=== PATIENT | female | born 1990 | race Caucasian/White ===

== ENCOUNTER 2018-01-04 16:11 | Emergency (ER) | payer OTHER, SELFPAY ==
[2018-01-04 16:19] VITALS: BP 127/86; PULSE 86; RESP 20; TEMP 36.5; O2SAT 99
[2018-01-04 16:45] LABS: Bilirubin Negative (Negative); Blood Small (Negative); Clarity Clear; Glucose Negative (Negative); Ketones Negative (Negative); Leukocyte Esterase Negative (Negative); Nitrite Negative (Negative)
[2018-01-04 16:57] LABS: Bacteria Few HPF (Negative); C & S Indicated? No/Sq. Contamination; Casts Negative LPF (Negative); Crystals Negative HPF (Negative); Epithelial Cells Many HPF (Negative); Mucus Negative (Negative); RBC 0-2 (0-2)
[2018-01-04 17:25] LABS: HCT 40.2 % (36.0-46.0); HGB 13.6 g/dL (12.0-15.5); Mean Corp. HGB Concentration 33.8 g/dL (32.0-36.0); Mean Corpuscular Hemoglobin 31.3 pg (27.0-33.0); Mean Corpuscular Volume 92.4 fL (80-95); Mean Platelet Volume 9.7 fL (8.0-11.0); Platelet Count 289 x1000/uL (130-400); RBC 4.35 m/cumm (4.00-5.20); White Blood Cell Count 7.73 k/cumm (4.4-10.8)
[2018-01-04 17:39] LABS: Anion Gap 11.3 mmol/L (3-11); BUN 8 mg/dL (7-18); CO2 25.7 mmol/L (21.0-32.0); CREATININE 0.58 mg/dL (0.55-1.02); Calcium 8.4 mg/dL (8.5-10.1); Chloride 99 mmol/L (98-107); Glucose 90 mg/dL (70-100); Potassium 3.4 mmol/L (3.5-5.1); Sodium 136 mmol/L (136-145)
--- NOTE | 2018-01-04 18:29 | DI.RAD_ITS ---
SYMPTOM/DIAGNOSIS: LT SIDED RIB PAIN, RECENT COLD PA AND LATERAL CHEST: No priors. The heart is normal in size. The lungs are clear. The mediastinal structures and pleura appear intact. CONCLUSION: Normal chest.
--- NOTE | 2018-01-04 18:32 | ED.GENADUL_ITS ---
Discharge Plan Disposition Patient Disposition: HOME Condition: Improving Discharge Details Chief Complaint: FlankPain Clinical Impression: Rib pain on left side Primary Care Provider: RAÚL,LOCAL ED Provider: Bernadette Boyce Home Meds and New Rx's Prescriptions: Continue fluoxetine 10 mg Capsule 10 mg PO DAILY RF: 0 Discharge Instructions Instructions: Chest Wall Pain (ED) Additional Instructions: Drink plenty of fluids and get plenty of rest. Be sure to safely stop drinking alcohol as alcohol withdrawal can be deadly. Follow-up with your primary care doctor in [place] in 1 week for reevaluation. Return to the emergency department any worsening or new concerning symptoms. Discharge Data Discharge Date/Time-TO BE ENTERED AT DEPARTURE: 01/04/18 20:36 Discharge Physician: Bernadette Boyce Medical Decision Making 27-year-old female presents with left lateral rib and chest pain for the past 2 weeks, worse with deep breathing. Admits to recent cold which is what she admits. To drinking 5-12 beers daily, 12 beers yesterday. She denies nausea, vomiting, diarrhea, abdominal pain, chest pain or urinary symptoms. Vitals within normal limits. Abdomen soft and nontender. Left lateral chest minimally tender to palpation. No rash or trauma to chest. No calf tenderness. Differential diagnosis includes musculoskeletal chest wall pain, PE, pancreatitis, shingles, costochondritis. Labs drawn on arrival and notes a white blood cell count of 7.7, urinalysis notes 5-10 WBCs but this appears contaminated. test negative. Will add a d-dimer, chest x-ray, lipase and liver panel give a dose of Toradol. 2009 --labs and imaging reviewed and unremarkable. D dimer negative. Lipase was 423 and the setting of no abdominal pain, nonspecific. Chest x-ray negative. She does feel better after Toradol. Patient is requesting her IV taken out and to go home. She is instructed on the importance of safely stopping alcohol. She is returning to [place] in 2 days. She is instructed to follow-up with a primary care doctor in 1 week for reevaluation and return to the ER if worse. HPI General Mode of arrival: ambulatory . Date/Time Provider Initiated Documentation: 01/04/18 16:48 . Limitations to Documentation: no limitations . Information obtained by: patient . HPI Narrative: Patient is a 27-year-old female who presents with L lateral chest /rib pain for the past 2 weeks. States her pain is constant and worse with deep breathing. She denies any alleviating factors. She has not taken any medication for pain. She admits to a recent cold with sore throat cough but states this is improving. She denies chest pain, fever, rash, abdominal pain, urinary symptoms or known injury. She drinks 5 beers daily for the past 2 months and yesterday she drank 12 beers. She denies recent travel, recent surgery, leg pain or swelling. She denies suicidal ideation. Past medical history: Depression Surgical history: None Social history: Denies tobacco or drugs, daily alcohol use Medications: Oral contraceptive pill Allergies: None PCP: In [place] Related Data Home Medications Medication Instructions Recorded Confirmed fluoxetine 10 mg PO DAILY 01/04/18 01/04/18 Allergies Allergy/AdvReac Type Severity Reaction Status Date / Time No Known Allergies Allergy Unverified 01/04/18 16:20 General Stated Complaint: FlankPain WILLIAM: 3 Review of Systems Review of Systems All systems reviewed & are unremarkable except as noted in HPI and below PFSH Social History Smoking/Tobacco Use Status: Never Exam Const General: cooperative and healthy appearing Orientation: alert and awake HENMT Head: normal to inspection Ears: hearing grossly normal bilaterally and external ears normal General nose exam: external nose normal Face and sinus: normal facial exam Mouth: oral mucosae normal Eyes General: appearance normal, both eyes and all related structures Eyelids: eyelids normal EOM: EOM intact bilaterally Neck Neck: normal visual inspection Lymphatic: no lymphadenopathy noted Chest Chest: normal inspection of the chest and tenderness (minimal tenderness to palpation L lateral chest pain. No rash, ecchymosis, erythema) Breast inspection: normal inspection of the breasts Resp Effort & Inspection: normal respiratory effort and able to speak in complete sentences Auscultation: clear to auscultation bilaterally Cardio Rate: regular rate Rhythm: regular rhythm GI Inspection: normal to inspection Palpation: soft, not firm, no guarding, no hepatosplenomegaly, no masses and nontender Auscultation: normal bowel sounds Back/Spine/Pelvis Back: no CVA tenderness Skin General skin exam: no rashes or lesions noted Neuro General: alert and awake Cognition: normal cognition Speech: speech normal Gait: normal gait Motor: muscle tone normal throughout Sensory Exam: no sensory deficits noted Extrem General: normal to inspection, full ROM, normal capillary refill and no edema Psych Appearance: grossly normal Mental Status: mental status grossly normal Speech and Movement: speech and movement normal Affect: normal affect Thought Process: normal Course Vital Signs Temperature 97.7 F 01/04/18 16:19 Pulse 86 01/04/18 16:19 Respiratory Rate 20 01/04/18 16:19 Blood Pressure 127/86 01/04/18 16:19 Pulse Oximetry 99 01/04/18 16:19 Temperature 97.7 F 01/04/18 16:19 Temperature Source Temporal Artery Scan 01/04/18 16:19 Pulse 86 01/04/18 16:19 Respiratory Rate 20 01/04/18 16:19 Respiratory Effort Non-Labored 01/04/18 16:27 Blood Pressure 127/86 01/04/18 16:19 Pulse Oximetry 99 01/04/18 16:19 Oxygen Delivery Method Room Air 01/04/18 16:19 Oxygen Flow Rate 0 01/04/18 16:19 Pain Level 9 01/04/18 16:19 Lab/Test Results Lab/Test Results: Laboratory Tests Range/Units 01/04/18 01/04/18 01/04/18 16:31 17:04 17:04 WBC (4.4-10.8) k/cumm 7.73 RBC (4.00-5.20) m/cumm 4.35 Hgb (12.0-15.5) g/dL 13.6 Hct (36.0-46.0) % 40.2 MCV (80-95) fL 92.4 MCH (27.0-33.0) pg 31.3 MCHC (32.0-36.0) g/dL 33.8 RDW (11.7-14.6) % 14.0 Plt Count (130-400) x1000/uL 289 MPV (8.0-11.0) fL 9.7 Sodium (136-145) mmol/L 136 Potassium (3.5-5.1) mmol/L 3.4 L Chloride (98-107) mmol/L 99 Carbon Dioxide (21.0-32.0) mmol/L 25.7 Anion Gap (3-11) mmol/L 11.3 H BUN (7-18) mg/dL 8 Creatinine (0.55-1.02) mg/dL 0.58 Estimated GFR/1.73 m2 (mL/min/1.73m2) >= 60.00 Glucose (70-100) mg/dL 90 Calcium (8.5-10.1) mg/dL 8.4 L Urine Color (Yellow) Yellow Urine Clarity Clear Urine pH (5-8) 7.0 Ur Specific [place] (1.005-1.025) 1.020 Urine Protein (Negative) mg/dL Negative Urine Ketones (Negative) mg/dL Negative Urine Blood (Negative) Small H Urine Nitrite (Negative) Negative Urine Bilirubin (Negative) Negative Urine Urobilinogen (Up TO 0.2) EU/dL 1.0 H Ur Leukocyte Esterase (Negative) Negative Urine RBC (0-2) 0-2 Urine WBC (0-5) HPF 5-10 Ur Epithelial Cells (Negative) HPF Many Urine Crystals (Negative) HPF Negative Urine Bacteria (Negative) HPF Few Urine Casts (Negative) LPF Negative Urine Mucus (Negative) Negative Ur Culture Indicated? No/sq. contamination Urine Glucose (Negative) mg/dL Negative POC- Test(urine) Negative
[2018-01-04 18:36] LABS: ALT 36 U/L (12-78); AST 28 U/L (15-37); Albumin 3.5 g/dL (3.4-5.0); Alkaline Phosphatase 59 U/L (46-116); Bilirubin, Direct 0.08 mg/dL (0.00-0.20); Bilirubin, Total 0.2 mg/dL (0.2-1.0); Lipase 423 U/L (73-393); Total Protein 7.7 g/dL (6.4-8.2)
[2018-01-04] MEDS: Ketorolac 30 MG/ML VIAL IVP (18:41)
--- NOTE | 2018-01-04 19:44 | DI.VRAD_ITS ---
EXAM: XR Chest, 2 Views EXAM DATE/TIME: 01/04/2018 6:31 PM CLINICAL HISTORY: 27 years old, female; Cough; L sided rib pain, recent cold; R/O acute disease TECHNIQUE: XR of the chest, 2 views. COMPARISON: No relevant prior studies available. FINDINGS: Lungs: Unremarkable. No consolidation. Pleural space: Unremarkable. No pleural effusion. No pneumothorax. Heart/Mediastinum: Unremarkable. No cardiomegaly. Bones/joints: Unremarkable for patient's age. IMPRESSION: No active pulmonary disease. Dictated and Authenticated by: Jos Pittman MD. Ordering:WILEY JAIN MD
[2018-01-04 19:55] LABS: D-Dimer 323 ng/mlFEU (<500)
[2018-01-04 20:37] VITALS: BP 130/75; PULSE 79; RESP 20; O2SAT 98
== END 2018-01-04 20:36 | disposition home or self-care (01) ==
PROVIDERS: Emergency Provider Physician Assistant
DX: R07.81 Pleurodynia (principal)
CPT/HCPCS: 36415; 80048; 80076; 81025; 83690; 85027; 96374; 99284; 71046; 81003; 81015; 85379; 99285; J1885

== ENCOUNTER 2019-01-30 15:45 | Outpatient (REF) | payer OTHER, SELFPAY ==
--- NOTE | 2019-01-30 15:30 | PAPFT_PTH ---
PATIENT: Marie Varela LOC: [facility] U#:[id number] AGE/SX: 28/F ROOM: RE01/30/[address]: JESICA Cabrera : 1990 BED: DIS: 01/30/2019 SPEC #: [id number] RECD: 02/02/19 10:51 STATUS: DAVON REOscar #: [id number] SHALOM: 01/30/19 15:[address]: Frances Gallegos DEPT: [facility] Cytology RECD BY: Tracy Sandoval ENTERED: 02/02/19 10:51 SP TYPE: PAPFT SEAMUS DR: Carri Weems Tissues: 1 - CX/ENDOCX FOR PAP SMEARS Procedures: PAP THIN PREP/UVM Screening Comments: [id number]
== END 2019-01-30 16:05 ==
LOC: LBN 15:45
PROVIDERS: Visit Provider Nurse Practitioner Family
DX: Z12.4 Encounter for screening for malignant neoplasm of cervix (principal)
CPT/HCPCS: 88142

== ENCOUNTER 2019-12-14 19:45 | Emergency (ER) | payer OTHER, SELFPAY ==
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
[2019-12-14 19:48] VITALS: BP 137/85; PULSE 98; RESP 16; TEMP 37.2; O2SAT 98
[2019-12-14] MEDS: Acetaminophen 500 MG TAB 1000 MG PO (20:06)
[2019-12-14] MEDS: Ketorolac 30 MG/ML VIAL IM (20:06)
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
== END 2019-12-14 21:10 | disposition home or self-care (01) ==
PROVIDERS: Emergency Provider Physician Assistant
DX: S52.591A Other fractures of lower end of right radius, initial encounter for closed fracture (principal); V86.55XA Driver of 3- or 4- wheeled all-terrain vehicle (ATV) injured in nontraffic accident, initial encounter
CPT/HCPCS: 25600; 81025; 96372; 99282; 73110; 73130; 99281; J1885; L3650

== ENCOUNTER 2019-12-23 10:55 | Outpatient (CLI) | payer OTHER, SELFPAY ==
--- NOTE | 2019-12-23 10:45 | DI.RAD_ITS ---
EXAM: XR FOREARM RT CLINICAL HISTORY: follow up right distal radius. TECHNIQUE: 2D digital imaging was performed. COMPARISON: CR,XR XR WRIST RT COMPL NAVICULAR from 12/14/2019 FINDINGS: BONES: There is no change in alignment of the distal radial fracture. No bony destructive lesion is seen. Visualized portions of the elbow and wrist are otherwise unremarkable. SOFT TISSUE: Normal. IMPRESSION: Stable distal radial fracture. DATA REPOSITORY: RADIATION DOSE DELIVERED:
== END 2019-12-23 11:15 ==
PROVIDERS: Referring Provider Student in an Organized Health Care Education/Training Program; Visit Provider Physician Assistant Surgical
DX: S52.591A Other fractures of lower end of right radius, initial encounter for closed fracture (principal)
CPT/HCPCS: 73090

== ENCOUNTER 2019-12-30 10:34 | Outpatient (CLI) | payer OTHER, SELFPAY ==
--- NOTE | 2019-12-30 08:45 | DI.RAD_ITS ---
EXAM: XR FOREARM RT INDICATION: F/U FRACTURE. COMPARISON: CR,XR XR HAND RT COMPLETE from 12/14/2019 TECHNIQUE: 2D digital imaging was performed. FINDINGS: There has been no change in the alignment of the distal radial fracture. The elbow is unremarkable. DATA REPOSITORY: RADIATION DOSE DELIVERED:
== END 2019-12-30 10:54 ==
PROVIDERS: Referring Provider Orthopaedic Surgery; Visit Provider Orthopaedic Surgery
DX: S52.591A Other fractures of lower end of right radius, initial encounter for closed fracture (principal)
CPT/HCPCS: 73090

== ENCOUNTER 2020-01-27 10:56 | Outpatient (CLI) | payer OTHER, SELFPAY ==
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
== END 2020-01-27 11:16 ==
PROVIDERS: Referring Provider Physician Assistant; Visit Provider Orthopaedic Surgery
DX: S52.501A Unspecified fracture of the lower end of right radius, initial encounter for closed fracture (principal)
CPT/HCPCS: 73100

== ENCOUNTER 2020-06-10 02:18 | Outpatient (CLI) | payer MEDICAID, SELFPAY ==
[2020-06-10 14:39] LABS: Kit/Specimen SENT
[2020-06-10 15:20] LABS: *AMPHETAMINES SCREEN URINE Negative (Negative); *BARBITURATES SCREEN URINE Negative (Negative); *BENZODIAZEPINES SCREEN URINE Negative (Negative); Cannabinoids THC Negative (Negative); Cocaine Screen,Urine Negative (Negative); METHADONE URINE SCREEN Negative (Negative); OPIATES URINE SCREEN Negative (Negative)
[2020-06-10 15:22] LABS: Tricyclic Antidepressants Negative (Negative)
[2020-06-10 16:26] LABS: Abs Immature Grans 0.05 10^3/uL (0.0-0.06); Absolute Basophil Count 0.03 10^3/uL (0.0-0.2); Absolute Eosinophil Count 0.18 10^3/uL (0.0-0.7); Absolute Lymphocyte Count 2.07 10^3/uL (1.2-3.4); Absolute Monocyte Count 0.58 10^3/uL (0.1-0.8); Absolute Neutrophil Count 7.39 10^3/uL (1.2-6.7); Basophils % 0.3; Eosinophils % 1.7; HCT 34.6 % (36.0-46.0); HGB 11.8 g/dL (11.2-15.7); Immature Grans % 0.5; Lymphocytes % 20.1; MCH 29.8 pg (27.0-33.0); MCHC 34.1 % (32.0-36.0); MCV 87.4 fL (80-95); MPV 11.1 fL (8.0-11.0); Monocytes % 5.6; Neutrophils % 71.8; Nucleated RBC 0 %; Platelet Count 272 10^3/uL (130-400); RBC 3.96 10^6/uL (3.93-5.22); RDW 12.5 % (11.7-14.6); RDW-SD 40.6 fL
[2020-06-12 16:16] LABS: Syphilis Total Ab w/Reflex Nonreactive (Nonreactive)
[2020-06-13 10:04] LABS: Hepatitis B Surface Ag Negative (Negative)
[2020-06-13 10:50] LABS: Hepatitis C Ab w Rflx HCV PCR Negative (Negative)
[2020-06-13 11:27] LABS: Varicella IgG Antibody Positive (See Note)
[2020-06-13 11:32] LABS: Rubella IgG Ab (UVM) Positive (See Note)
[2020-06-13 11:59] LABS: HIV-1/2 Ag & Ab Screen Negative (Negative)
[2020-06-13 15:46] LABS: Chlamydia Result Negative (Negative); GC Result Negative (Negative)
[2020-06-16 10:54] LABS: Buprenorphine Negative ng/mL (Cutoff: 5.0); Norbuprenorphine Negative ng/mL (Cutoff: 2.5)
[2020-06-22 12:29] LABS: Result Summary NEGATIVE; Specimen WB Whole Blood
== END 2020-06-10 02:19 | disposition home or self-care (01) ==
LOC: LBO 02:18
PROVIDERS: Visit Provider Advanced Practice Midwife
DX: Z34.91 Encounter for supervision of normal pregnancy, unspecified, first trimester (principal); Z11.3 Encounter for screening for infections with a predominantly sexual mode of transmission; Z36.89 Encounter for other specified antenatal screening; Z11.59 Encounter for screening for other viral diseases; Z11.4 Encounter for screening for human immunodeficiency virus [HIV]; Z01.84 Encounter for antibody response examination
CPT/HCPCS: 80307; 86787; 86803; 86850; 86900; 86901; 87340; 87389; 87491; 87591; 81220; 85025; 86762; 86780; 87086

== ENCOUNTER 2020-08-01 01:10 | Outpatient (CLI) | payer MEDICAID, SELFPAY ==
--- NOTE | 2020-08-01 07:30 | DI.US_ITS ---
Exam(s) US OB 2-3 TRIMESTER EXAM: US OB 2-3 TRIMESTER CLINICAL HISTORY: 18 week anatomy survey,Z34.90. TECHNIQUE: Transabdominal obstetrical ultrasound performed. COMPARISON: No exams were available for comparison FINDINGS: Transabdominal obstetrical ultrasound performed. FINDINGS: Number of fetuses: One. position: Breech heart rate: 162 bpm. Placental location: Posterior. The placental tip is 0.7 cm from the internal os. Amniotic fluid index: Amount of fluid is within normal limits. ANATOMICAL SURVEY: Within normal limits. BIOMETRIC DATA: BPD: 4.2cm consistent with 18 weeks 5 days HC: 16.1cm consistent with 18 weeks 6 days AC: 13.8cm consistent with 19 weeks 1 day FL: 3cm consistent with 19 weeks 2 days Cisterna Magna: 3 mm Cerebellum: 2.1 cm Composite Age: 19 weeks EDC by US: 12/26/2020 Heart Rate: 162BPM IMPRESSION: 1. Single live intrauterine gestation as above. 2. There is a low-lying placenta. 3. Normal anatomic survey. DATA REPOSITORY:
== END 2020-08-01 01:30 ==
PROVIDERS: Visit Provider Advanced Practice Midwife
DX: Z34.92 Encounter for supervision of normal pregnancy, unspecified, second trimester (principal); Z3A.18 18 weeks gestation of pregnancy
CPT/HCPCS: 76805

== ENCOUNTER 2020-09-27 03:16 | Outpatient (CLI) | payer MEDICAID, SELFPAY ==
[2020-09-27 17:03] LABS: HGB 10.4 g/dL (11.2-15.7); MCH 29.5 pg (27.0-33.0); MCHC 33.5 % (32.0-36.0); MCV 87.8 fL (80-95); MPV 9.7 fL (8.0-11.0); Platelet Count 232 10^3/uL (130-400); RBC 3.53 10^6/uL (3.93-5.22); RDW 12.8 % (11.7-14.6); RDW-SD 41.1 fL; WBC 11.06 10^3/uL (4.4-10.8)
[2020-09-27 17:08] LABS: Glucose,1 Hr (Glucola) 129 mg/dL (80-140)
== END 2020-09-27 03:17 | disposition home or self-care (01) ==
LOC: LBO 03:17
PROVIDERS: Advanced Practice Midwife; Visit Provider Obstetrics & Gynecology Gynecology
DX: Z34.92 Encounter for supervision of normal pregnancy, unspecified, second trimester (principal); Z3A.27 27 weeks gestation of pregnancy
CPT/HCPCS: 36415; 82950; 85027

== ENCOUNTER 2020-09-30 02:28 | Outpatient (CLI) | payer MEDICAID, SELFPAY ==
--- NOTE | 2020-09-30 07:45 | DI.US_ITS ---
Exam(s) US OB F/U FACIAL/LVOT/RVOT EXAM: US OB F/U FACIAL/LVOT/RVOT CLINICAL HISTORY: follow up 19 week US low lying placenta, O44.42, Z34.90 TECHNIQUE: Ultrasound performed using standard protocol. COMPARISON: US US OB 2-3 TRIMESTER from 08/01/2020 FINDINGS: Limited ultrasound was performed to evaluate placental location. Predicted gestational age is approx imately 27 weeks by history.. Placenta is posterior. Placental tip now lies about 3.3 cm above the internal os. No evidence of previa or marginal previa. heart rate was 147 BPM. There is visually a normal quantity of amniotic fluid. IMPRESSION: DATA REPOSITORY:
== END 2020-09-30 02:48 ==
PROVIDERS: Visit Provider Advanced Practice Midwife
DX: O44.42 Low lying placenta NOS or without hemorrhage, second trimester (principal); Z3A.27 27 weeks gestation of pregnancy
CPT/HCPCS: 76815

== ENCOUNTER 2020-11-29 16:46 | Outpatient (REF) | payer MEDICAID, SELFPAY ==
[2020-11-29 18:06] LABS: PROTEIN 15.6 mg/dL
[2020-11-29 18:13] LABS: *AMPHETAMINES SCREEN URINE Negative (Negative); *BARBITURATES SCREEN URINE Negative (Negative); *BENZODIAZEPINES SCREEN URINE Negative (Negative); Cannabinoids THC Negative (Negative); Cocaine Screen,Urine Negative (Negative); METHADONE URINE SCREEN Negative (Negative); OPIATES URINE SCREEN Negative (Negative)
[2020-11-29 18:19] LABS: Tricyclic Antidepressants Negative (Negative)
[2020-11-29 19:25] LABS: Prot/Crea Ur Ratio 0.21
[2020-12-03 12:01] LABS: Buprenorphine Negative ng/mL (Cutoff: 5.0); Norbuprenorphine Negative ng/mL (Cutoff: 2.5)
== END 2020-11-29 16:47 | disposition home or self-care (01) ==
LOC: LBN 16:46
PROVIDERS: Advanced Practice Midwife; Visit Provider Obstetrics & Gynecology
DX: O12.03 Gestational edema, third trimester (principal); Z36.85 Encounter for antenatal screening for Streptococcus B; Z3A.36 36 weeks gestation of pregnancy
CPT/HCPCS: 80307; 82565; 84156; 87081

== ENCOUNTER 2020-12-02 10:59 | Outpatient (CLI) | payer MEDICAID, SELFPAY ==
[2020-12-02 11:39] VITALS: BP 130/77; PULSE 90; TEMP 36.9
--- NOTE | 2020-12-02 13:26 | W.OBNST ---
Date of service: 12/02/20 Time of Service: 13:26 NST Evaluation Reason for NST Reasons for Nonstress Test: OTHER, SEE COMMENT Reason for NST Other: Elevated BP in office, new onset pedal edema Gestational Age Gestational Age in Weeks and Days: 36 Weeks and 3Days Test and Monitor Explained Test/Monitor Explained: Test Explained, Monitor Explained and Patient Verbalized Understanding Vital Signs Blood Pressure: 130/77 Pulse: 90 Temperature: 98.4 F NST Information Date on Monitor: 12/02/20 Time on Monitor: 11:36 Date off Monitor: 12/02/20 Time off Monitor: 12:15 Total Time on Monitor: 39 NST Interventions: PO Hydration NST Evaluation Patient States Movement: Present FHR Baseline: 140 Variability: Moderate 6-25 bpm Accelerations: 15x15 Decelerations: None NST Results: Reactive Note NST Note Note: Marie presented for scheduled NST due to BP elevations, Today BP is stable, Denies signs or symptoms of pre-eclamspia. Reports active baby. Denies signs of labor. NST is reactive and reassuring. Will keep next office visit and further discuss NST needs then. Discussed mild lower leg/feet edema and self help measures. JESSICA NST Reviewed and Verified by: Amira De Luna
[2020-12-02 13:28] VITALS: BP 130/77; PULSE 90; TEMP 36.9
== END 2020-12-02 12:40 | disposition home or self-care (01) ==
LOC: BCD 11:01 → OBS 11:31
PROVIDERS: Visit Provider Advanced Practice Midwife
DX: O99.893 Other specified diseases and conditions complicating puerperium (principal); R03.0 Elevated blood-pressure reading, without diagnosis of hypertension; O12.02 Gestational edema, second trimester; Z3A.36 36 weeks gestation of pregnancy
CPT/HCPCS: 59025

== ENCOUNTER 2020-12-06 17:24 | Outpatient (REF) | payer MEDICAID, SELFPAY ==
[2020-12-06 22:06] LABS: PROTEIN 8.3 mg/dL
[2020-12-06 22:07] LABS: COMMENT (LAB VIEW ONLY) 55.07 mg/dL; Prot/Crea Ur Ratio 0.15
== END 2020-12-06 17:25 | disposition home or self-care (01) ==
LOC: LBN 17:24
PROVIDERS: Visit Provider Advanced Practice Midwife
DX: O12.03 Gestational edema, third trimester (principal); Z3A.37 37 weeks gestation of pregnancy
CPT/HCPCS: 82565; 84156

== ENCOUNTER 2020-12-12 14:50 | Outpatient (CLI) | payer MEDICAID, SELFPAY ==
[2020-12-12 14:58] VITALS: BP 136/82; PULSE 76; RESP 16; TEMP 37
[2020-12-12 15:24] VITALS: BP 134/74; PULSE 75
[2020-12-12 15:27] VITALS: BP 134/74
[2020-12-12 15:45] VITALS: BP 136/82; PULSE 76; TEMP 36.8
--- NOTE | 2020-12-12 15:56 | W.OBNST ---
Date of service: 12/12/20 Time of Service: 15:56 NST Evaluation Reason for NST Reasons for Nonstress Test: GESTATIONAL HYPERTENSION Gestational Age Gestational Age in Weeks and Days: 37 Weeks and 6Days Test and Monitor Explained Test/Monitor Explained: Test Explained, Monitor Explained and Patient Verbalized Understanding Vital Signs Blood Pressure: 136/82 Pulse: 76 Temperature: 98.2 F NST Information Date on Monitor: 12/12/20 Time on Monitor: 14:52 Date off Monitor: 12/12/20 NST Interventions: Reposition Patient NST Evaluation Patient States Movement: Present FHR Baseline: 135 Variability: Moderate 6-25 bpm Accelerations: 15x15 Decelerations: None NST Results: Reactive Note NST Note Note: B.P. elevated at the office today. Edema is trace and improved from the previous 2 weeks. Marie has had a mild headache for a few days. She has not taken tylenol at all. I encouraged her to take tylenol and rest and call if symptoms do not resolve. preeclampsia labs sent today. Await results. Marie was encoraged to continue modified bedrest at home. NST Reviewed and Verified by: Amira Del Cid
[2020-12-12 15:57] LABS: HCT 34.3 % (36.0-46.0); HGB 11.5 g/dL (11.2-15.7); MCH 28.4 pg (27.0-33.0); MCHC 33.5 % (32.0-36.0); MCV 84.7 fL (80-95); MPV 11.5 fL (8.0-11.0); Platelet Count 201 10^3/uL (130-400); RBC 4.05 10^6/uL (3.93-5.22); RDW 13.4 % (11.7-14.6); RDW-SD 41.6 fL; WBC 8.61 10^3/uL (4.4-10.8)
[2020-12-12 15:58] VITALS: BP 136/82; PULSE 76; TEMP 36.8
[2020-12-12 16:30] LABS: ALT 35 U/L (14-59); AST 27 U/L (15-37); Albumin 2.4 g/dL (3.4-5.0); Alkaline Phosphatase 151 U/L (46-116); Anion Gap 9.1 mmol/L (3-11); BUN 8 mg/dL (7-18); Bilirubin, Total 0.3 mg/dL (0.2-1.0); CO2 23.9 mmol/L (21.0-32.0); CREATININE 0.6 mg/dL (0.55-1.02); Calcium 8.2 mg/dL (8.5-10.1); Chloride 105 mmol/L (98-107); Glucose 76 mg/dL (74-106); Potassium 3.2 mmol/L (3.5-5.1); Sodium 138 mmol/L (136-145); Total Protein 6.3 g/dL (6.4-8.2); Uric Acid 4.6 mg/dL (2.6-6.0)
[2020-12-12 16:52] LABS: PROTEIN < 6.0 mg/dL
[2020-12-12 16:59] LABS: COMMENT (LAB VIEW ONLY) 38.18 mg/dL
== END 2020-12-12 16:25 | disposition home or self-care (01) ==
LOC: BCD 14:51 → OBS 14:53
PROVIDERS: Advanced Practice Midwife; Visit Provider Advanced Practice Midwife
DX: O13.3 Gestational [pregnancy-induced] hypertension without significant proteinuria, third trimester (principal); Z3A.37 37 weeks gestation of pregnancy
CPT/HCPCS: 36415; 80053; 85027; 59025; 82565; 84156; 84550

== ENCOUNTER 2020-12-16 09:46 | Outpatient (CLI) | payer MEDICAID, SELFPAY ==
[2020-12-16 13:10] VITALS: BP 140/81; PULSE 77; TEMP 37
[2020-12-16 13:30] VITALS: BP 140/81; PULSE 77
[2020-12-16 14:15] VITALS: BP 139/85; PULSE 69
[2020-12-16 14:21] LABS: HGB 11.9 g/dL (11.2-15.7); MCH 28.6 pg (27.0-33.0); MCHC 33.1 % (32.0-36.0); MCV 86.5 fL (80-95); MPV 11.6 fL (8.0-11.0); Platelet Count 215 10^3/uL (130-400); RBC 4.16 10^6/uL (3.93-5.22); RDW 13.5 % (11.7-14.6); RDW-SD 42.1 fL; WBC 9.46 10^3/uL (4.4-10.8)
[2020-12-16 14:38] LABS: ALT 25 U/L (14-59); AST 22 U/L (15-37); Albumin 2.6 g/dL (3.4-5.0); Alkaline Phosphatase 168 U/L (46-116); Anion Gap 8.3 mmol/L (3-11); BUN 7 mg/dL (7-18); Bilirubin, Total 0.3 mg/dL (0.2-1.0); CO2 24.7 mmol/L (21.0-32.0); CREATININE 0.6 mg/dL (0.55-1.02); Chloride 103 mmol/L (98-107); Glucose 72 mg/dL (74-106); Potassium 3.6 mmol/L (3.5-5.1); Sodium 136 mmol/L (136-145); Total Protein 6.6 g/dL (6.4-8.2); Uric Acid 4.4 mg/dL (2.6-6.0)
[2020-12-16 14:54] VITALS: BP 133/84; PULSE 76
[2020-12-16 15:12] LABS: PROTEIN < 6.0 mg/dL
[2020-12-16 15:15] LABS: COMMENT (LAB VIEW ONLY) 25.63 mg/dL
--- NOTE | 2020-12-16 15:46 | W.OBNST ---
Date of service: 12/16/20 Time of Service: 15:46 NST Evaluation Reason for NST Reasons for Nonstress Test: GESTATIONAL HYPERTENSION Gestational Age Gestational Age in Weeks and Days: 38 Weeks and 3Days Test and Monitor Explained Test/Monitor Explained: Test Explained, Monitor Explained and Patient Verbalized Understanding Vital Signs Blood Pressure: 140/81 Pulse: 77 Temperature: 98.6 F NST Information Date on Monitor: 12/16/20 Time on Monitor: 13:15 Date off Monitor: 12/16/20 NST Interventions: PO Hydration NST Evaluation Patient States Movement: Present FHR Baseline: 135 Variability: Moderate 6-25 bpm Accelerations: 15x15 Decelerations: None NST Results: Reactive Note NST Note Note: Serial BP q 40 minutes: 140/81, 139/85, 133/84 Cvx closed/50% posterior, firm, vtx -3, intact membranes Labs drawn (3rd set in 2 wks). All results remain WNL Reviewed pt status iw Dr. Joseph, recommend IOL at 39 wks for Gest HTN Pt booked for 12/20, report to [facility] at noon. NST Reviewed and Verified by: Ольга Elizalde
[2020-12-16 15:51] VITALS: BP 140/81; PULSE 77; TEMP 37
== END 2020-12-16 15:30 | disposition home or self-care (01) ==
LOC: BCD 09:47 → OBS 13:09
PROVIDERS: Visit Provider Advanced Practice Midwife
DX: O13.3 Gestational [pregnancy-induced] hypertension without significant proteinuria, third trimester (principal); Z3A.38 38 weeks gestation of pregnancy
CPT/HCPCS: 80053; 85027; 59025; 82565; 84156; 84550

== ENCOUNTER 2020-12-20 16:09 | Outpatient (CLI) | payer MEDICAID, SELFPAY ==
[2020-12-20 16:26] VITALS: BP 136/83; PULSE 80; RESP 16; TEMP 36.8
[2020-12-20 16:54] LABS: HCT 34.1 % (36.0-46.0); HGB 11.4 g/dL (11.2-15.7); MCH 28.6 pg (27.0-33.0); MCHC 33.4 % (32.0-36.0); MCV 85.7 fL (80-95); Platelet Count 196 10^3/uL (130-400); RBC 3.98 10^6/uL (3.93-5.22); RDW 13.6 % (11.7-14.6); RDW-SD 42.2 fL; WBC 7.48 10^3/uL (4.4-10.8)
[2020-12-20 17:04] LABS: ALT 19 U/L (14-59); AST 18 U/L (15-37); Albumin 2.4 g/dL (3.4-5.0); Alkaline Phosphatase 160 U/L (46-116); Anion Gap 11.1 mmol/L (3-11); BUN 7 mg/dL (7-18); Bilirubin, Total 0.2 mg/dL (0.2-1.0); CO2 22.9 mmol/L (21.0-32.0); CREATININE 0.6 mg/dL (0.55-1.02); Calcium 8.5 mg/dL (8.5-10.1); Chloride 105 mmol/L (98-107); Glucose 112 mg/dL (74-106); Potassium 3.2 mmol/L (3.5-5.1); Sodium 139 mmol/L (136-145); Total Protein 6.2 g/dL (6.4-8.2); Uric Acid 4.4 mg/dL (2.6-6.0)
[2020-12-20 18:03] LABS: PROTEIN 10.9 mg/dL
[2020-12-20 18:11] LABS: COMMENT (LAB VIEW ONLY) 41.13 mg/dL; Prot/Crea Ur Ratio 0.26
--- NOTE | 2020-12-20 20:02 | W.OBNST ---
Date of service: 12/20/20 Time of Service: 20:02 NST Evaluation Reason for NST Reasons for Nonstress Test: GESTATIONAL HYPERTENSION Gestational Age Gestational Age in Weeks and Days: 39 Weeks and 0Days Test and Monitor Explained Test/Monitor Explained: Test Explained, Monitor Explained and Patient Verbalized Understanding NST Information Date on Monitor: 12/20/20 Time on Monitor: 16:20 Date off Monitor: 12/20/20 Time off Monitor: 16:43 Total Time on Monitor: 23 NST Interventions: PO Hydration Contraction Frequency: 6-7 NST Evaluation Patient States Movement: Present FHR Baseline: 140 Variability: Moderate 6-25 bpm Accelerations: 15x15 Decelerations: None NST Results: Reactive Note NST Note Note: BP 136/83 Labs done and all are WNL Discharged to home to await being called in for IOL as soon as unit volume and acuity allow NST Reviewed and Verified by: Ольга Elizalde
== END 2020-12-20 20:03 | disposition home or self-care (01) ==
LOC: BCD 16:12 → OBS 16:15
PROVIDERS: Visit Provider Advanced Practice Midwife
DX: O13.3 Gestational [pregnancy-induced] hypertension without significant proteinuria, third trimester (principal); Z3A.39 39 weeks gestation of pregnancy
CPT/HCPCS: 80053; 85027; 99211; 59025; 82565; 84156; 84550

== ENCOUNTER 2020-12-22 15:17 | Inpatient (IN) | payer MEDICAID, SELFPAY ==
[2020-12-22 15:39] VITALS: BP 164/98; PULSE 71
[2020-12-22 15:40] VITALS: BP 157/84; PULSE 71
[2020-12-22 15:55] VITALS: BP 157/84; PULSE 71; RESP 16; TEMP 36.7
[2020-12-22 16:29] LABS: HCT 36.4 % (36.0-46.0); HGB 11.9 g/dL (11.2-15.7); MCH 28.1 pg (27.0-33.0); MCHC 32.7 % (32.0-36.0); MCV 86.1 fL (80-95); MPV 12.1 fL (8.0-11.0); Platelet Count 197 10^3/uL (130-400); RBC 4.23 10^6/uL (3.93-5.22); RDW 13.5 % (11.7-14.6); RDW-SD 41.6 fL; WBC 9.34 10^3/uL (4.4-10.8)
[2020-12-22 17:03] LABS: ALT 19 U/L (14-59); AST 21 U/L (15-37); Albumin 2.6 g/dL (3.4-5.0); Alkaline Phosphatase 172 U/L (46-116); Anion Gap 10.3 mmol/L (3-11); BUN 6 mg/dL (7-18); Bilirubin, Total 0.2 mg/dL (0.2-1.0); CO2 23.7 mmol/L (21.0-32.0); CREATININE 0.6 mg/dL (0.55-1.02); Calcium 8.7 mg/dL (8.5-10.1); Chloride 105 mmol/L (98-107); Glucose 72 mg/dL (74-106); Potassium 3.3 mmol/L (3.5-5.1); Sodium 139 mmol/L (136-145); Total Protein 6.6 g/dL (6.4-8.2); Uric Acid 4.7 mg/dL (2.6-6.0)
[2020-12-22 17:28] VITALS: BP 190/82; PULSE 71
[2020-12-22 17:29] VITALS: BP 161/77; PULSE 69
--- NOTE | 2020-12-22 18:40 | HPE_ITS ---
Date of service: 12/22/20 Time of Service: 18:40 Assessment and Plan Assessment and plan (1) Hypertension affecting in third trimester: Status: Acute Assessment and plan: preeclampsia panel completed and WNL. Induction of labor planned for tomorrow morning after patient rests. (2) Edema during : Status: Acute (3) Prolonged latent phase of labor: Status: Acute Assessment and plan: Admit to the Center. Medication with Morphine and vistaril for therapeutic rest. Sleep encouraged. Will consider induction of labor in the morning when staffing allows. OB-HPI Labor/Delivery History of Present Illness Reason for Visit: Term Rule Out Labor Chief Complaint: Uterine Contractions; Maternal Discomfort (prodromal labor) , Associated Signs and Symptoms of Maternal Discomfort: none. EDUARDO Calculator Estimated Delivery Date Method Current WG Current Estimate 12/27/20 LMP (Certain) 39w 2d Other Estimates 12/30/20 Ultrasound #1 38w 6d Comments: Marie has been observed for gestational hypertension with pedal edema and B.P.s ranging from 130-140/80-90. She reports Contractions which began in the contact center team lead hours and have worsened this afternoon. Her cervix was found to be closed by the RN caring for her with no cervical change in 2 hours. Her cervix is now 1 cm/80% by my exam. Marie is complaining of fatigue and we reviewed options. History of Present Expected Delivery Route/Plan - LUIGIM FOB/yaquelin - Rex Chaitanya Duff (his first child) BG Angelica Rao GBS negative Specific Issues/Plan 1. [place] LP X 3, female, (patient picked up copy to read gender, only informed of LPX3) 2. CF carrier screen negative. Declines AFP single marker test 3. low lying placenta at 19 weeks 0.7cm from os, repeat 28 weeks ordered 3a. Sono September 30 shows placenta tip 3.3 cm from os, low lie is resolved 4. Marie does not plan to receive covid vaccine, Chaitanya has received it. 5. On 11/08, pt had severe lower left rib cage pain, possibly costochondritis from , discuss @ next appt 6. Edema - neg protein/creatinine ratio x 2. 7. Gestational Hypertension- twice weekly testing , labs WNL [facility] Medical History (Updated 12/22/20 @ 18:46 by Amira Del Cid CNM) Former tobacco use History of ectopic treated with medication Low-lying placenta in second trimester resolved headache in second trimester Family History (Updated 06/10/20 @ 13:07 by Amira Del Cid CNM) Father Well adult Mother Well adult Paternal Grandmother Breast cancer Maternal Grandfather Diabetes Social History Smoking/Tobacco Use Status: Current-Occasional Smoking risk assessment performed?: Yes Alcohol Intake: current Alcohol Intake frequency: a few times a week Drug use: Never Current gender identity: female Do you feel safe at home: Yes Do you feel safe in your relationship?: Yes History History 2 Para 0 Hx # Term Pregnancies 0 Multiple births 0 Hx # Pregnancies 0 Ectopic pregnancies 1 AB induced 0 Hx Number of Living Children 0 AB spontaneous 0 Meds Allergies and Home Medications Allergies Allergy/AdvReac Type Severity Reaction Status Date / Time nickel AdvReac Mild Skin Rash Verified 12/12/20 14:08 dust AdvReac Mild runny nose Uncoded 12/12/20 14:08 Home Medications Medication Instructions Recorded Confirmed Type fluticasone propionate 2 spray INTRANASAL BID 12/14/19 11/29/20 History prenat.vits,lea,jbs-hlcb-aedzs 1 tab PO DAILY 04/28/20 11/29/20 History fluoxetine 10 mg capsule 20 mg PO DAILY cap 05/19/20 11/29/20 History twvdjztufv-ssrednxfxnjkq-efrrkkqi 1 cap PO Q6H PRN #10 cap 12/20/20 Rx 50 mg-300 mg-40 mg capsule Exam Physical Exam Vital signs: Temp Pulse Resp BP 98.0 F 69 16 161/77 H 12/22/20 15:55 12/22/20 17:29 12/22/20 15:55 12/22/20 17:29 Vital Signs Reviewed: Yes Constitutional Constitutional: mild distress Detailed Labor and Delivery Exam Dilation: 1 Effacement (%): 80 station: -1 Cervix position: mid Consistency: soft Boss Score: Cervical Points Exam 0 1 2 3 Dilation Closed 1-2cm 3-4 cm 5-6cm Effacement 0-30% 40-50% 60-70% 80% Consistency Firm Medium Soft Station -3 -2 -1,0 +1,+2 Position Posterior Mid Anterior Amniotic Membrane Status: Intact Contraction Frequency(min): every 4 minutes Contraction Duration(sec): 60 Contraction Intensity: Mild/Moderate Comments: Admit to Center. Covid- 19 test. Anticipate . Fetus A Heart Rate Baseline: 140 Monitor Accelerations: 15 X 15 Monitor Decelerations: None Variability: Moderate (6-25 BPM) Presentation: Vertex Categories: Category I Est. Weight: 7 Respiratory Exam Respiratory Exam: Normal Cardiovascular Exam Cardiovascular Exam: Normal Abdominal Exam Abdominal Exam: Normal Rectal Exam Rectal Exam: Normal Exam Exam: Normal Extremities Exam Extremities Exam: Normal (trace edema) Back/Spine/Pelvis Exam Pelvis Adequate: Yes Skin Exam Skin Exam: Normal Psychiatric Exam Psychiatric Exam: Normal Results Results Group Beta Strep: Negative Abnormal Lab Findings: Abnormal Labs 12/22/20 12/22/20 16:17 16:17 MPV 12.1 H Potassium 3.3 L BUN 6 L Glucose 72 L Alkaline Phosphatase 172 H Albumin 2.6 L Risk Assessment Risk for Shoulder Dystocia Historical/Initial OB: NEGATIVE FOR: Pelvic Abnormality, Pre- BMI>30, Previous Shoulder Dystocia or Previous Macrosomia 40 Weeks: NEGATIVE FOR: EFW> 4500 gms, Maternal Weight Gain >40lb or Post Dates Delivery Plan @ 36wks: Risk for Pre-Eclampsia Date Initiated/Initials: not indicated. JK Yes, if one or more: NEGATIVE FOR: Hx Pre-E/Gest HTN, Chronic HTN, Multiple Gestation, Pre-gestational DM, Renal Disease, Systemic Lupus or APA Syndrome Yes, if 2 or more: POSITIVE FOR: Nulliparity; NEGATIVE FOR: Age>= 35 yrs, >10yr btwn pregnancies, BMI>30, ethinicty, Mother/Sister w/ Pre-E or Previous IUGR Risk for Post- Hemorrhage Initial: NEGATIVE FOR: Multiple Gestation, Previous PPH, Known Clotting Deficiency, Grand Multiparity or Anticoagulation At Risk?: No Risks Reviewed Risks Reviewed Upon Admission: Yes
[2020-12-22] MEDS: hydrOXYzine PAMOATE 25 MG CAP 50 MG PO (19:14)
[2020-12-22] MEDS: MORPHine 10 MG/ML VIAL IM (19:15)
[2020-12-22 19:18] VITALS: BP 150/88; PULSE 66
--- NOTE | 2020-12-22 19:42 | NUR.NOTE ---
pt called RN to bedside. Said she felt a pop followed by a few gushed of fluid. Nursing Note:
--- NOTE | 2020-12-22 22:34 | W.PM.OBNL1 ---
Date of service: 12/22/20 Time of Service: 22:34 Pelvic Exam Dilation: 3 Effacement (%): 90 station: -1 Cervix Position: mid Consistency: soft Vaginal Exam Presentation: Cephalic Pooling: Positive Contractions Monitor Mode: External Contraction Frequency(min): every 2-3 minutes Contraction Duration(sec): 60 Intensity: Moderate/Strong Fetus A Monitor: External (US) Heart Rate Baseline: 120 Presentation: Vertex Variability: Minimal (1-5 BPM) Categories: Category II Accelerations: 15 X 15 Decelerations: Variable Recurrence: Intermittent Amniotic Membrane Status: Ruptured Assessment Note: variable decellerations noted down to 90-100 from a baseline of 120 associated with contractions. 100 cc bolus was given by RN prior to my arrival. Malarie was moved to hands and knees position and decellerations improved. 500 cc bolus was ordered Assessment and Plan Assessment and plan (1) Hypertension affecting in third trimester: Status: Acute Assessment and plan: B.P. 150/77 and 160/88. Will continue to assess. Dr Joseph was notified of patient's status upon admission. The plan for admission and augmentation if necessary was reviewed. (2) Edema during : Status: Acute (3) Spontaneous onset of labor: Status: Acute Assessment and plan: continue to assess FHR pattern. Anticipate . Comfort measures. Objective Abnormal lab results 12/22/20 12/22/20 Range/Units 16:17 16:17 MPV 12.1 H (8.0-11.0) fL Potassium 3.3 L (3.5-5.1) mmol/L BUN 6 L (7-18) mg/dL Glucose 72 L (74-106) mg/dL Alkaline Phosphatase 172 H (46-116) U/L Albumin 2.6 L (3.4-5.0) g/dL Temp Pulse Resp BP 98.0 F 66 16 150/88 H 12/22/20 15:55 12/22/20 19:18 12/22/20 15:55 12/22/20 19:18 Laboratory Results WBC 9.34 10^3/uL (4.4-10.8) 12/22/20 16:17 RBC 4.23 10^6/uL (3.93-5.22) 12/22/20 16:17 Hgb 11.9 g/dL (11.2-15.7) 12/22/20 16:17 Hct 36.4 % (36.0-46.0) 12/22/20 16:17 MCV 86.1 fL (80-95) 12/22/20 16:17 MCH 28.1 pg (27.0-33.0) 12/22/20 16:17 MCHC 32.7 % (32.0-36.0) 12/22/20 16:17 RDW 13.5 % (11.7-14.6) 12/22/20 16:17 Plt Count 197 10^3/uL (130-400) 12/22/20 16:17 MPV 12.1 fL (8.0-11.0) H 12/22/20 16:17 Sodium 139 mmol/L (136-145) 12/22/20 16:17 Potassium 3.3 mmol/L (3.5-5.1) L 12/22/20 16:17 Chloride 105 mmol/L (98-107) 12/22/20 16:17 Carbon Dioxide 23.7 mmol/L (21.0-32.0) 12/22/20 16:17 Anion Gap 10.3 mmol/L (3-11) 12/22/20 16:17 BUN 6 mg/dL (7-18) L 12/22/20 16:17 Creatinine 0.6 mg/dL (0.55-1.02) 12/22/20 16:17 Estimated GFR/1.73 m2 >= 60.00 (mL/min/1.73m2) 12/22/20 16:17 Glucose 72 mg/dL (74-106) L 12/22/20 16:17 Uric Acid 4.7 mg/dL (2.6-6.0) 12/22/20 16:17 Calcium 8.7 mg/dL (8.5-10.1) 12/22/20 16:17 Total Bilirubin 0.2 mg/dL (0.2-1.0) 12/22/20 16:17 AST 21 U/L (15-37) 12/22/20 16:17 ALT 19 U/L (14-59) 12/22/20 16:17 Alkaline Phosphatase 172 U/L (46-116) H 12/22/20 16:17 Total Protein 6.6 g/dL (6.4-8.2) 12/22/20 16:17 Albumin 2.6 g/dL (3.4-5.0) L 12/22/20 16:17 Patient ABO/Rh B Positive 12/22/20 16:17 Antibody Screen NEGATIVE 12/22/20 16:17 Subjective Patient Reports: New Complaints Interval history since last seen: Marie received medication for sleep. Shortly after receiving the medication, SROM occurred for small amount of clear fluid. She began experiencing stronger contractions and requested to use nitrous oxide. Results Hemoglobin/Hematocrit: Hgb 11.9 g/dL (11.2-15.7) 12/22/20 16:17 Hct 36.4 % (36.0-46.0) 12/22/20 16:17 Abnormal Lab Findings: Abnormal Labs 12/22/20 12/22/20 16:17 16:17 MPV 12.1 H Potassium 3.3 L BUN 6 L Glucose 72 L Alkaline Phosphatase 172 H Albumin 2.6 L
[2020-12-23] VITALS (16 sets, daily range): BP systolic 128–142; BP diastolic 66–87; PULSE 84–117; RESP 18–20; TEMP 36.6–37; O2SAT 95–99
--- NOTE | 2020-12-23 02:14 | OBVDS_ITS ---
Date of service: 12/23/20 Time of Service: 02:14 OB Labor/ Delivery Information Baby A Delivery Delivery Method: Spontaneaous Presentation: Cephalic Cephalic Position: Vertex Vertex Position: Left Occipital Anterior (transverse shoulders) Cord Description-Baby A: 3 Vessels Amniotic Fluid: Clear Estimated Blood Loss: 300 Delivery Outcome: Liveborn Infant Transferred: Remains with Mother Note: FHTs 120s during first stage of labor. Marie was examined by RN after SROM and was 3 cms dilated. She progressed rapidly to full dilation and began bearing down with contractions. B.P. in the second stage 135/82. Straight catheterized during second stage as she was unable to void when she got up to the bathroom for 300 cc clear urine protein creatinene ratio sent. FHTs 120 in second stage. There were variable decellerations with pushing down to 90-100. Dr. Joseph was notified of variables and she came to the hospital to be available. Second stage huddle was done. Oxygen was administered via mask between pushes. Dr. Joseph was present for delivery. Spontaneous delivery of female delivered in AARON position with transverse shoulders. Baby was placed on mother's abdomen and dried and stimulated. Spontaneous cry. Cord was clamped and cut by the baby's father. The second I.V. dislodged and pitocin 10 units was given IM prior to the placenta delivery. With gentle cord traction, the cord broke at the placenta. The placenta was removed manually under nitrous oxide analgesia. The placenta and appears to by intact with a three vessel cord. The perineum was inspected and there was a small 2nd degree laceration which extended into the right sulcus. It was repaired under local anesthetic. The baby did breastfeed. After delivery, Mother and baby and father of the baby were stable and bonding well in the delivery room and there were no complications. Providers Doctor: Yumiko Joseph Nurse Wool Fleece Sorter: Amira Del Cid Nurse: Aleyda Galeas Nurse: Stephanie Lewis Other: Vivian Renee Labor/Delivery Information Number of Babies in Womb: 1 Steroids Given: None Reason Steroids Not Administered: N/A Group Beta Strep: Negative Antibiotics Administered: No Rubella Status: Immune Blood Type: B+ Varicella Immunity: Immune Born En Route: No Shoulder Dystocia: No Stages of Labor Onset of Labor Date: 12/22/20 Complete Dilatation Date: 12/22/20 Complete Dilatation Time: 23:15 ROM Baby A: 12/22/20 ROM Baby A: 19:38 ROM Total Time- Baby A: [id number] Infant Delivery Date-Baby A: 12/23/20 Delivery Time-Baby A: 01:20 Labor Stage 2 Duration: 2 hours and 5 minutes Placenta Delivery Date-Baby A: 12/23/20 Placenta Delivery Time-Baby A: 01:31 Labor-Stage 3 Duration: 11 minutes Placenta Status: Retained Baby A Gender: Female Gestational Status: Term (39-41.6 wks) Gestational Age in Weeks/Days: 39 Weeks and 3 Days Score-1 Minute Interval(Baby A) Heart Rate-1 minute: 100 BPM or Greater Respiratory Effort- 1 minute: Slow Respiration/Weak Cry Muscle Tone-1 minute: Active Movement Reflex Response-1 minute: Prompt Response Color-1 minute: Bluish Hands or Feet Total Score-1 minute: 8 Score-5 Minute Interval(Baby A) Heart Rate- 5 minute: 100 BPM or Greater Respiratory Effort-5 minute: Spontaneous/Strong Cry Muscle Tone-5 minute: Active Movement Reflex Response-5 minute: Prompt Response Color-5 minute: Bluish Hands or Feet Total Score- 5 minute: 9 Procedure Procedures: Retained Placenta Extraction (placenta manually removed due to broken cord. ) , none. EBL 300 cc Interventions Repair of Laceration Type: Perineal , Laceration Extension: Second Degree . Sponge Count Correct: No Sponges Placed in Vagina , Sharp Count Correct: Yes .
[2020-12-23 02:44] LABS: PROTEIN 31.3 mg/dL
[2020-12-23 02:45] LABS: COMMENT (LAB VIEW ONLY) 100.94 mg/dL; Prot/Crea Ur Ratio 0.31
[2020-12-23] MEDS: Acetaminophen 325 MG TAB 650 MG PO ×4 (02:49→19:15)
[2020-12-23] MEDS: Oxytocin 10 UNITS/ML VIAL IM (05:14)
[2020-12-23] MEDS: Ibuprofen 600 MG TAB PO ×3 (10:42→22:22)
[2020-12-23] MEDS: Hamamelis Leaf/Glycerin 100 EACH BOX PR (10:44)
[2020-12-23] MEDS: Dibucaine 1% 28 GM TUBE TP (10:45)
[2020-12-23] MEDS: Docusate Sodium 100 MG CAP PO (10:49)
[2020-12-23 11:49] LABS: Source Nasal/Nares
[2020-12-23 12:43] LABS: COVID-19 PCR Negative (Negative)
[2020-12-24] MEDS: Cyclobenzaprine 10 MG TAB PO (00:02)
[2020-12-24] MEDS: Ibuprofen 600 MG TAB PO ×2 (06:01→11:51)
[2020-12-24] MEDS: Acetaminophen 325 MG TAB 650 MG PO ×2 (06:01→11:51)
[2020-12-24 08:05] LABS: HCT 32.5 % (36.0-46.0); HGB 10.8 g/dL (11.2-15.7); MCH 28.8 pg (27.0-33.0); MCHC 33.2 % (32.0-36.0); MCV 86.7 fL (80-95); MPV 11.5 fL (8.0-11.0); Platelet Count 194 10^3/uL (130-400); RBC 3.75 10^6/uL (3.93-5.22); RDW 13.9 % (11.7-14.6); RDW-SD 43.1 fL; WBC 12.89 10^3/uL (4.4-10.8)
[2020-12-24] MEDS: oxyCODONE 5 mg/Acetaminophen 325 mg TAB 1 TAB PO ×3 (08:23→16:35)
[2020-12-24 09:20] VITALS: BP 120/78; PULSE 84; RESP 16; TEMP 36.8
--- NOTE | 2020-12-24 15:13 | W.PM.OBDISCH ---
Date of service: 12/24/20 Time of Service: 15:20 DS: Diagnosis Discharge Diagnosis (1) Hypertension affecting in third trimester: Status: Acute (2) Term of female : Status: Acute Asessment and Plan: Caring for baby independently. Pain due to low back discomfort. Marie has a history of low back pain. Her pain is managed well with oral analgesics, including flexeril and percocet x 1 dose. Voiding without difficulty. well. She has been using a sitz bath for perineal pain. A - stable mother and baby , second degree perineal laceration. Post day 2, low back pain P - Discharge to home. Routine post instructions. [facility] (3) Back pain: Status: Acute Asessment and Plan: percocet x 6 tablets escribed and flexeril 5 mg PO at HS PRN back pain. Hot packs or ice an baths PRN. Discussed following up with PT if pain persists Discharge Plan Discharge Details Reason For Visit: Term Rule Out Labor Admit Date/Time: 12/22/20 18:37 Admit Provider: Amira Del Cid Attending Provider: Amira Del Cid Primary Care Provider: ,Local Home Meds and New Rx's Prescriptions: New cyclobenzaprine 5 mg tablet 5 mg PO QHS Qty: 14 RF: 1 oxycodone-acetaminophen [Percocet] 5-325 mg tablet 1 tab PO Q8H PRNQty: 6 RF: 0 Continued prenat.vits,lea,fvs-qfol-pgwux Tablet 1 tab PO DAILY RF: 0 fluoxetine 10 mg capsule 20 mg PO DAILY RF: 0 No Action qbipxqpheq-nmlvjjswxmnzi-yrsv [Fioricet] 50-300-40 mg capsule 1 cap PO Q6H PRN (Reason: pain) Qty: 10 RF: 0 fluticasone propionate 50 mcg/actuation spray,suspension 2 spray INTRANASAL BID RF: 0 Discharge Instructions Activity:: Activity as Tolerated Activity:: Activity as Tolerated Equipment/Supplies:: No Equipment Needed OB:DS Summary Summary Vaginal Delivery Method: Spontaneaous Episiotomy Description: None Laceration Description: Perineal Laceration Extension: Second Degree Contraception Discussed Contraception Discussed: Yes Contraceptive Plan: Control Pill/Patch (POP), Gender-Baby A: Female weight: 7 lb 12.517 oz Status at Discharge Functional status at discharge: independent ambulation Overall status at discharge: patient is back to baseline Mental Status: mental status grossly normal Speech and Movement: speech and movement normal Mood: congruent mood Affect: normal affect Exam Physical Exam Vital signs: Temp Pulse Resp BP Pulse Ox 98.2 F 84 16 120/78 99 12/24/20 09:20 12/24/20 09:20 12/24/20 09:20 12/24/20 09:20 12/23/20 23:44 Vital Signs Reviewed: Yes Constitutional Constitutional: no acute distress Respiratory Exam Respiratory Exam: Normal Cardiovascular Exam Cardiovascular Exam: Normal Fundal Exam Fundus: Below Umbilicus and Firm Rectal Exam Rectal Exam: Normal Exam Perineum: Bruising and Repair Intact Extremities Exam Extremity Exam: Normal Back/Spine/Pelvis Exam Back Exam: Normal Skin Exam Skin Exam: Normal Psychiatric Exam Psychiatric Exam: Normal [facility] Medical History (Updated 12/24/20 @ 15:29 by Amira Del Cid CNM) Back pain Former tobacco use History of ectopic treated with medication Low-lying placenta in second trimester resolved headache in second trimester Family History (Updated 06/10/20 @ 13:07 by Amira Del Cid CNM) Father Well adult Mother Well adult Paternal Grandmother Breast cancer Maternal Grandfather Diabetes Social History Smoking/Tobacco Use Status: Current-Occasional Smoking risk assessment performed?: Yes Alcohol Intake: current Alcohol Intake frequency: a few times a week Drug use: Never Current gender identity: female Do you feel safe at home: Yes Do you feel safe in your relationship?: Yes History History 2 Para 0 Hx # Term Pregnancies 0 Multiple births 0 Hx # Pregnancies 0 Ectopic pregnancies 1 AB induced 0 Hx Number of Living Children 0 AB spontaneous 0 DS: Data Vitals/I&O Vitals and I&O: Vital Signs Temperature 98.2 F 12/24/20 09:20 Pulse 84 12/24/20 09:20 Pulse Rhythm Regular 12/24/20 08:13 Respiratory Rate 16 12/24/20 09:20 Respiratory Depth Normal 12/23/20 15:20 Blood Pressure 120/78 12/24/20 09:20 Blood Pressure Mean 92 12/24/20 09:20 Pulse Oximetry 99 12/23/20 23:44 Oxygen Delivery Method Room Air 12/22/20 15:55 Oxygen Flow Rate 0 12/22/20 15:55 Pain Level 2 12/24/20 09:20 Comment 12/22/20 17:28 Intake & Output 12/23/20 12/24/20 12/24/20 23:59 11:59 23:59 Output Total 300 / 1000 Balance -300 / -1000 Output: Urine 300 / 1000 Other: Urine Color Straw Data Completed and Pending Labs on day of discharge: Labs from last 24 hours 12/24/20 07:45 WBC 12.89 H RBC 3.75 L Hgb 10.8 L Hct 32.5 L MCV 86.7 MCH 28.8 MCHC 33.2 RDW 13.9 Plt Count 194 MPV 11.5 H
== END 2020-12-24 17:46 | disposition home or self-care (01) | DRG 807 ==
PROVIDERS: Admitting Provider Advanced Practice Midwife; Visit Provider Advanced Practice Midwife
DX: O13.4 Gestational [pregnancy-induced] hypertension without significant proteinuria, complicating childbirth (principal); Z37.0 Single live birth; O14.04 Mild to moderate pre-eclampsia, complicating childbirth; O63.0 Prolonged first stage (of labor); Z3A.39 39 weeks gestation of pregnancy; O70.1 Second degree perineal laceration during delivery; M54.9 Dorsalgia, unspecified
CPT/HCPCS: 36415; 80053; 85027; 86850; 86900; 86901; 87635; 82565; 84156; 84550; J2270; J2590

== ENCOUNTER 2022-04-12 04:07 | Outpatient (CLI) | payer MEDICAID, SELFPAY ==
[2022-04-12 11:41] LABS: Abs Immature Grans 0.04 10^3/uL (0.0-0.06); Absolute Basophil Count 0.03 10^3/uL (0.0-0.2); Absolute Eosinophil Count 0.12 10^3/uL (0.0-0.7); Absolute Lymphocyte Count 2.12 10^3/uL (1.2-3.4); Absolute Monocyte Count 0.48 10^3/uL (0.1-0.8); Absolute Neutrophil Count 6.85 10^3/uL (1.2-6.7); Basophils % 0.3; Eosinophils % 1.2; HCT 35.3 % (36.0-46.0); HGB 12.1 g/dL (11.2-15.7); Immature Grans % 0.4; MCH 29.4 pg (27.0-33.0); MCHC 34.3 % (32.0-36.0); MCV 86 fL (80-95); MPV 10.4 fL (8.0-11.0); Neutrophils % 71.1; Platelet Count 227 10^3/uL (130-400); RBC 4.11 10^6/uL (3.93-5.22); RDW 12.9 % (11.7-14.6); RDW-SD 40.4 fL; WBC 9.64 10^3/uL (4.4-10.8)
[2022-04-12 13:30] LABS: Panorama Kit Sent via Fed Ex
[2022-04-13 09:28] LABS: Hepatitis B Surface Ag Negative (Negative)
[2022-04-13 10:01] LABS: Hepatitis C Ab w Rflx HCV PCR Negative (Negative)
[2022-04-13 10:31] LABS: HIV-1/2 Ag & Ab Screen Negative (Negative)
[2022-04-13 11:35] LABS: Varicella IgG Antibody Positive (See Note)
[2022-04-13 11:47] LABS: Rubella IgG Ab (UVM) Positive (See Note)
[2022-04-14 14:38] LABS: Syphilis IgG w/Reflex Nonreactive (Nonreactive)
== END 2022-04-12 04:08 | disposition home or self-care (01) ==
LOC: LBO 04:07
PROVIDERS: Visit Provider Advanced Practice Midwife
DX: Z34.91 Encounter for supervision of normal pregnancy, unspecified, first trimester (principal); Z3A.11 11 weeks gestation of pregnancy
CPT/HCPCS: 36415; 86787; 86803; 86850; 86900; 86901; 87340; 87389; 85025; 86762; 86780

== ENCOUNTER 2022-04-12 11:25 | Outpatient (REF) | payer MEDICAID, SELFPAY ==
--- NOTE | 2022-04-12 10:30 | PAPFT_PTH ---
PATIENT: Marie Varela LOC: [facility] U#:[id number] AGE/SX: 31/F ROOM: RE04/12/[address]: Amira Del Cid : 1990 BED: DIS: 04/12/2022 SPEC #: [id number] RECD: 04/12/22 12:42 STATUS: DAVON REQ #: [id number] SHALOM: 04/12/22 10:[address]: Amira Del Cid DEPT: [facility] Cytology RECD BY: Kristina Whitehead Tissues: 1 - CX/ENDOCX FOR PAP SMEARS Procedures: PAP THIN PREP/UVM Screening HPV DNA PROBE Comments: [id number]
[2022-04-12 13:50] LABS: *AMPHETAMINES SCREEN URINE Negative (Negative); *BARBITURATES SCREEN URINE Negative (Negative); *BENZODIAZEPINES SCREEN URINE Negative (Negative); Cannabinoids THC Negative (Negative); Cocaine Screen,Urine Negative (Negative); METHADONE URINE SCREEN Negative (Negative); OPIATES URINE SCREEN Negative (Negative)
[2022-04-12 13:52] LABS: Tricyclic Antidepressants Negative (Negative)
[2022-04-13 13:23] LABS: Chlamydia Result Negative (Negative); GC Result Negative (Negative)
[2022-04-18 14:11] LABS: Buprenorphine Negative ng/mL (Cutoff: 5.0); Norbuprenorphine Negative ng/mL (Cutoff: 2.5)
== END 2022-04-12 11:26 | disposition home or self-care (01) ==
LOC: LBN 11:25
PROVIDERS: Visit Provider Advanced Practice Midwife
DX: Z34.91 Encounter for supervision of normal pregnancy, unspecified, first trimester (principal); Z11.3 Encounter for screening for infections with a predominantly sexual mode of transmission; Z12.4 Encounter for screening for malignant neoplasm of cervix; Z3A.11 11 weeks gestation of pregnancy; Z11.51 Encounter for screening for human papillomavirus (HPV)
CPT/HCPCS: 80307; 80348; 87491; 87591; 88142; 87086; 87624

== ENCOUNTER 2022-06-15 00:38 | Outpatient (CLI) | payer MEDICAID, SELFPAY ==
--- NOTE | 2022-06-15 06:45 | DI.US_ITS ---
Exam(s) US OB 2-3 TRIMESTER EXAM: US OB 2-3 TRIMESTER CLINICAL HISTORY: ,Z34.90. TECHNIQUE: Transabdominal obstetrical ultrasound performed. COMPARISON: US US OB F/U FACIAL/LVOT/RVOT from 09/30/2020 FINDINGS: Number of fetuses: 1 position: CEPHALIC heart rate: 147bpm Placental location: There is a grade 1 anterior placenta. The placental tip is 4.4 cm from the inter nal os. No evidence of previa. Amniotic fluid index: Amount of fluid is within normal limits. ANATOMICAL SURVEY: Within normal limits. The cord insertion site is 4.5 cm from the placental m argin. BIOMETRIC DATA: BPD: 4.76cm, 20weeks 3days HC: 17.93cm, 20weeks 3days AC: 14.88cm, 20weeks 1day FL: 3.44cm, 20weeks 6days Cisterna magna: 4.3mm Cerebellum: 2.23cm EFW: 354.36g, 0.77lb, 19% Composite Age: 20weeks 3days EDUARDO: 10/30/2022 Heart Rate: 147bpm IMPRESSION: 1. Single live intrauterine gestation as above. 2. Normal anatomic survey. DATA REPOSITORY:
== END 2022-06-15 00:58 ==
PROVIDERS: Visit Provider Advanced Practice Midwife
DX: Z34.92 Encounter for supervision of normal pregnancy, unspecified, second trimester (principal); Z3A.20 20 weeks gestation of pregnancy
CPT/HCPCS: 76805

== ENCOUNTER 2022-08-10 01:22 | Outpatient (CLI) | payer MEDICAID, SELFPAY ==
[2022-08-10 09:32] LABS: HCT 36.5 % (36.0-46.0); HGB 12.1 g/dL (11.2-15.7); MCH 29.8 pg (27.0-33.0); MCHC 33.2 % (32.0-36.0); MCV 90 fL (80-95); Platelet Count 228 10^3/uL (130-400); RBC 4.06 10^6/uL (3.93-5.22); RDW 13.5 % (11.7-14.6); RDW-SD 44.6 fL; WBC 9.31 10^3/uL (4.4-10.8)
[2022-08-10 09:58] LABS: Glucose,1 Hr (Glucola) 104 mg/dL (80-140)
== END 2022-08-10 01:23 | disposition home or self-care (01) ==
LOC: LBO 01:23
PROVIDERS: Visit Provider Advanced Practice Midwife
DX: Z34.93 Encounter for supervision of normal pregnancy, unspecified, third trimester (principal); Z3A.28 28 weeks gestation of pregnancy
CPT/HCPCS: 36415; 82950; 85027

== ENCOUNTER 2022-09-04 01:43 | Outpatient (CLI) | payer MEDICAID, SELFPAY ==
--- NOTE | 2022-09-04 12:30 | DI.US_ITS ---
Exam(s) US OB LIANNA WEIGHT EXAM: US OB LIANNA WEIGHT CLINICAL HISTORY: covid infection in Z34.90 SUPERVISION IN . TECHNIQUE: Transabdominal obstetrical ultrasound performed. COMPARISON: US US OB 2-3 TRIMESTER from 06/15/2022 FINDINGS: Number of fetuses: 1 position: CEPHALIC Placental location: There is a grade 1 anterior placenta. No evidence of previa. BIOMETRIC DATA: BPD: 8.08cm, 32weeks 3days HC: 29.64cm, 32weeks 5days AC: 30.86cm, 34weeks 6days FL: 5.86cm, 30weeks 4days EFW: 2,145.17g, 4lb 13.97oz, 74.1% Composite Age: 32weeks 5days EDUARDO: 10/25/2022 Heart Rate: 134bpm Amniotic fluid index: 14.58cm. Visually, amount of fluid is within normal limits. IMPRESSION: 1. Single live intrauterine gestation as above. 2. Estimated weight is 2145gms. This is the 74th percentile. 3. Amniotic fluid index is 14.6 cm. Visually within normal limits. DATA REPOSITORY:
== END 2022-09-04 02:03 ==
PROVIDERS: Visit Provider Advanced Practice Midwife
DX: Z34.93 Encounter for supervision of normal pregnancy, unspecified, third trimester (principal)
CPT/HCPCS: 76816

== ENCOUNTER 2022-10-08 11:59 | Outpatient (REF) | payer MEDICAID, SELFPAY ==
[2022-10-08 13:51] LABS: *AMPHETAMINES SCREEN URINE Negative (Negative); *BARBITURATES SCREEN URINE Negative (Negative); *BENZODIAZEPINES SCREEN URINE Negative (Negative); Cannabinoids THC Negative (Negative); Cocaine Screen,Urine Negative (Negative); METHADONE URINE SCREEN Negative (Negative); OPIATES URINE SCREEN Negative (Negative)
[2022-10-08 13:53] LABS: Tricyclic Antidepressants Negative (Negative)
== END 2022-10-08 12:00 | disposition home or self-care (01) ==
LOC: LBN 11:59
PROVIDERS: Visit Provider Advanced Practice Midwife
DX: Z34.93 Encounter for supervision of normal pregnancy, unspecified, third trimester (principal); Z36.85 Encounter for antenatal screening for Streptococcus B
CPT/HCPCS: 80307; 87081

== ENCOUNTER 2022-10-26 00:30 | Inpatient (IN) | payer MEDICAID, SELFPAY ==
[2022-10-26] VITALS (37 sets, daily range): BP systolic 55–144; BP diastolic 18–83; PULSE 73–148; RESP 12–18; TEMP 36.7–37.2; O2SAT 80–99; BMI 31.1
--- NOTE | 2022-10-26 01:09 | HPE_ITS ---
Date of service: 10/26/22 Time of Service: 01:10 Assessment and Plan Assessment and plan (1) Spontaneous onset of labor: Status: Acute Assessment and plan: Admit to Center. Comfort measures. Anticipate . OB-HPI Labor/Delivery History of Present Illness Reason for Visit: Rule out labor Chief Complaint: Uterine Contractions. EDUARDO Calculator Estimated Delivery Date Method Current WG Current Estimate 10/29/22 Ultrasound #1 39w 4d Other Estimates 10/21/22 LMP (Uncertain) 40w 5d Comments: Marie has been experiencing contractions for 11 hours which have been irregular and have increased in frequency. History of Present Expected Delivery Route/Plan - CNM FOB/yaquelin - Chaitanya Sherin- (second child together) BG- Mickie Sanz Likely unmedicated but OK with epidural if things go long GBS negative Specific Issues/Plan 1. CF carrier screen negative. Panorama LR female, declines AFP 2. Covid infection 02/20, unvaccinated - 32 week growth US 09/04 74% VTX nl LIANNA 3. anxiety - fluoxetine in the past. No meds currently 4. Tdap given PFSH All Active Problems (Updated 10/26/22 @ 01:20 by Amira Del Cid CNM) Spontaneous onset of labor (Acute) Right hip pain (Acute) COVID-19 affecting in first trimester (Acute) (Acute) Anxiety (Chronic) Positive test (Acute) Medical History (Updated 10/26/22 @ 01:20 by Amira Del Cid CNM) Back pain Former tobacco use History of ectopic treated with medication Mild anemia Family History (Updated 06/10/20 @ 13:07 by Amira Del Cid CNM) Father Well adult Mother Well adult Paternal Grandmother Breast cancer Maternal Grandfather Diabetes Social History (Updated 04/12/22 @ 10:29 by Amira Del Cid CNM) Smoking/Tobacco Use Status: Former Tobacco Use Smoking risk assessment performed?: Yes Alcohol Intake: former Drug use: Never Current gender identity: female Do you feel safe at home: Yes Do you feel safe in your relationship?: Yes History History 3 Para 1 Hx # Term Pregnancies 1 Multiple births 0 Hx # Pregnancies 0 Ectopic pregnancies 1 AB induced 0 Hx Number of Living Children 1 AB spontaneous 0 Past Pregnancies Del. Date GA/Weeks # Preg Succ Route Wgt Sex Labor Lgth Anesth esia Location Prov Complic 07/30/16 No In [place] 12/23/20 39 No vaginal 7 lb 12.51 oz Female local [facility] Delivery Date: 07/30/16 Last Updated by: Laney Elizalde ectopic preg, Rx'ed methyltrexate Delivery Date: 12/23/20 Last Updated by: Amira Del Cid CNM Long prodromal phase. Received therapeutic rest. Retained placenta, manually removed due broken cord Angelica Rao. Used nitrous oxide. Meds Allergies and Home Medications Allergies Allergy/AdvReac Type Severity Reaction Status Date / Time nickel AdvReac Mild Skin Rash Verified 10/23/22 11:06 dust AdvReac Mild runny nose Uncoded 10/23/22 11:06 Home Medications Medication Instructions Recorded Confirmed Type prenat.vits,lea,bxr-oodh-pzmjz 1 tab PO DAILY 04/28/20 10/23/22 History omeprazole magnesium 20 mg 20 mg PO DAILY #90 tabs 07/23/22 10/23/22 Rx tablet,delayed release Exam Physical Exam Vital signs: Temp Pulse Resp BP 98.2 F 73 18 132/78 10/26/22 00:51 10/26/22 00:51 10/26/22 00:51 10/26/22 00:51 Detailed Labor and Delivery Exam Dilation: 2 Effacement (%): 50 station: -2 Cervix position: mid Consistency: medium Boss Score: Cervical Points Exam 0 1 2 3 Dilation Closed 1-2cm 3-4 cm 5-6cm Effacement 0-30% 40-50% 60-70% 80% Consistency Firm Medium Soft Station -3 -2 -1,0 +1,+2 Position Posterior Mid Anterior Amniotic Membrane Status: Intact Monitor Mode: External Contraction Frequency(min): every 2-3 Contraction Duration(sec): 60 Contraction Intensity: Moderate/Strong Fetus A Heart Rate Baseline: 130 Monitor Accelerations: 15 X 15 Monitor Decelerations: None Variability: Moderate (6-25 BPM) Presentation: Vertex Categories: Category I Respiratory Exam Respiratory Exam: Normal Cardiovascular Exam Cardiovascular Exam: Normal Abdominal Exam Abdominal Exam: Normal Exam Exam: Normal Extremities Exam Extremities Exam: Normal Skin Exam Skin Exam: Normal Psychiatric Exam Psychiatric Exam: Normal Risk Assessment Risk for Shoulder Dystocia Historical/Initial OB: NEGATIVE FOR: Pelvic Abnormality, Pre- BMI>30, Previous Shoulder Dystocia or Previous Macrosomia 40 Weeks: NEGATIVE FOR: EFW> 4500 gms, Maternal Weight Gain >40lb or Post Dates Increased Risk?: No Risk for Pre-Eclampsia Date Initiated/Initials: not indicated. Yes, if one or more: NEGATIVE FOR: Hx Pre-E/Gest HTN, Chronic HTN, Multiple Gestation, Pre-gestational DM, Renal Disease, Systemic Lupus or APA Syndrome Yes, if 2 or more: NEGATIVE FOR: Nulliparity, Age>= 35 yrs, >10yr btwn pregnancies, BMI>30, ethinicty, Mother/Sister w/ Pre-E or Previous IUGR Risk for Post- Hemorrhage Initial: NEGATIVE FOR: Multiple Gestation, Previous PPH, Known Clotting Deficiency, Grand Multiparity or Anticoagulation 40 Weeks: NEGATIVE FOR: Anemia, hgb<10, Low platelets (thrombocytopenia), G estation HTN or Pre-E, Polyhydraminios or EFW>4500gms At Risk?: No Risks Reviewed Risks Reviewed Upon Admission: Yes
[2022-10-26 01:34] LABS: HGB 12.9 g/dL (11.2-15.7); MCH 29.5 pg (27.0-33.0); MCHC 33.1 % (32.0-36.0); MCV 89 fL (80-95); MPV 10.9 fL (8.0-11.0); Platelet Count 203 10^3/uL (130-400); RBC 4.37 10^6/uL (3.93-5.22); RDW 13.5 % (11.7-14.6); WBC 10.15 10^3/uL (4.4-10.8)
--- NOTE | 2022-10-26 03:00 | W.PM.OBNL1 ---
Date of service: 10/26/22 Time of Service: 03:00 Pelvic Exam Comments: pelvic exam deferred. Membranes intact Contractions Monitor Mode: Palpation Contraction Frequency(min): every 3-4 Contraction Duration(sec): 60 Intensity: Moderate/Strong Fetus A Monitor: Doppler Heart Rate Baseline: 140 Decelerations: None Assessment and Plan Assessment and plan (1) Spontaneous onset of labor: Status: Acute Assessment and plan: prepared for epidural. Anticipate . Objective Temp Pulse Resp BP 98.2 F 73 18 132/78 10/26/22 00:51 10/26/22 00:51 10/26/22 00:51 10/26/22 00:51 Laboratory Results WBC 10.15 10^3/uL (4.4-10.8) 10/26/22 01:20 RBC 4.37 10^6/uL (3.93-5.22) 10/26/22 01:20 Hgb 12.9 g/dL (11.2-15.7) 10/26/22 01:20 Hct 39.0 % (36.0-46.0) 10/26/22 01:20 MCV 89 fL (80-95) 10/26/22 01:20 MCH 29.5 pg (27.0-33.0) 10/26/22 01:20 MCHC 33.1 % (32.0-36.0) 10/26/22 01:20 RDW 13.5 % (11.7-14.6) 10/26/22 01:20 Plt Count 203 10^3/uL (130-400) 10/26/22 01:20 MPV 10.9 fL (8.0-11.0) 10/26/22 01:20 Patient ABO/Rh B Positive 10/26/22 01:20 Antibody Screen NEGATIVE 10/26/22 01:20 Subjective Interval history since last seen: Marie is using nitrous oxide for pain relief with good effect. She requests an epidural for pain relief and Gianluca VELIZ was paged and is enroute Results Hemoglobin/Hematocrit: Hgb 12.9 g/dL (11.2-15.7) 10/26/22 01:20 Hct 39.0 % (36.0-46.0) 10/26/22 01:20
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
--- NOTE | 2022-10-26 03:58 | W.ANESNEU ---
Epidural/Spinal Catheter Date Performed: 10/26/22 Procedure Start: 03:29 Procedure Stop: 03:48 Requesting Provider: Amira Del Cid Procedure Location: Obstetrics Reason Performed: Labor Epidural Standard Monitors Applied: Blood Pressure and SpO2 Patient Position: Sitting Sedation Given (Indicate Dose Given): No Sedation given Patient Mental Status: Awake Sterility: Hand Hygiene, Surgical Cap, Surgical Mask, Sterile Drape/Sheet and Chlorhexidine Procedure Location: L3-L4 Interspace Epidural Needle: Tuohy 17 Guage Needle Length: 3.5 Inch Needle Approach: Midline Epidural Procedure: 1% Lidocaine to skin and subcutaneous tissue with 25G needle and ASHLEY to Saline Used Catheter Placed?: Catheter Placed (wire reinforced) Test Dose (Indicate Dose Given): 3ml 1.5% Lidocaine with 1:200K Epinephrine Given and Negative Test Dose Loss of Resistance Depth (cm): 5 Catheter depth at skin (cm): 10 Dressing: Sorbaview Dressing Placed and Mastisol Used Epidural Provider Bolus (Indicate Dose Given): Total Ropivacaine 0.1% with Fentanyl 2mcg/ml Given from pump. (ml) (7 mL + 3 mL) Dose:: 10 mL Additives (Indicate Dose Given ): None Infusion Medication: Medication Infusion Began Medication Infusion: Ropivacaine 0.1% with Fentanyl 2mcg/ml Maintenance Infusion Rate (ml/hour): 10 PCEA Bolus Dose (ml): 5 Block Level: N/A Paresthesia: None Ultrasound: Used to iman site Number of Attempts (See previous attempts in note section): 1 Procedure Tolerated: No Complications Procedure Outcome: Successful Procedure Comment:: negative test dose, 10 mL load total, appears and stated to be more comfortable with mostly equal distribution. Educated on PCEA function. Performed By: Gianluca Platt
--- NOTE | 2022-10-26 04:06 | W.PM.OBNL1 ---
Date of service: 10/26/22 Time of Service: 04:07 Pelvic Exam Dilation: 4 Effacement (%): 80 station: -1 Cervix Position: mid Consistency: soft Contractions Monitor Mode: External Contraction Frequency(min): every 3 minutes Contraction Duration(sec): 60 Intensity: Moderate/Strong Fetus A Monitor: External (US) Heart Rate Baseline: 140 Presentation: Vertex Variability: Moderate (6-25 BPM) Categories: Category I Accelerations: 15 X 15 Decelerations: None Amniotic Membrane Status: Intact Assessment and Plan Assessment and plan (1) Spontaneous onset of labor: Status: Acute Assessment and plan: rest encouraged. Anticipate Objective Temp Pulse Resp BP Pulse Ox 98.2 F 90 18 122/65 98 10/26/22 00:51 10/26/22 04:03 10/26/22 00:51 10/26/22 04:03 10/26/22 04:03 Laboratory Results WBC 10.15 10^3/uL (4.4-10.8) 10/26/22 01:20 RBC 4.37 10^6/uL (3.93-5.22) 10/26/22 01:20 Hgb 12.9 g/dL (11.2-15.7) 10/26/22 01:20 Hct 39.0 % (36.0-46.0) 10/26/22 01:20 MCV 89 fL (80-95) 10/26/22 01:20 MCH 29.5 pg (27.0-33.0) 10/26/22 01:20 MCHC 33.1 % (32.0-36.0) 10/26/22 01:20 RDW 13.5 % (11.7-14.6) 10/26/22 01:20 Plt Count 203 10^3/uL (130-400) 10/26/22 01:20 MPV 10.9 fL (8.0-11.0) 10/26/22 01:20 Patient ABO/Rh B Positive 10/26/22 01:20 Antibody Screen NEGATIVE 10/26/22 01:20 Results Hemoglobin/Hematocrit: Hgb 12.9 g/dL (11.2-15.7) 10/26/22 01:20 Hct 39.0 % (36.0-46.0) 10/26/22 01:20
[2022-10-26] MEDS: Oxytocin/Normal Saline 30 UNIT/500 ML BAG 95 UNITS IV (07:45)
[2022-10-26] MEDS: Normal Saline Flush 10 ML SYR IVP (07:49)
--- NOTE | 2022-10-26 08:23 | OBVDS_ITS ---
Date of service: 10/26/22 Time of Service: 08:25 OB Labor/ Delivery Information Baby A Delivery Delivery Method: Spontaneaous Presentation: Vertex Vertex Position: Right Occipital Anterior Cord Description Comment: tight cord around shoulders slipped over the head after delivery of the shoulders Amniotic Fluid: [place] Tinged Estimated Blood Loss: 200 Delivery Outcome: Liveborn Note: Good relief from epidural. FHTs 140s during first stage of labor. FHTs 140s in second stage. Malarie rested well and Progressed to full dilation and began pushing. Spontaneous delivery of female infant delivered in AARON position. Baby was placed on mother's abdomen and dried and stimulated. Spontaneous cry. Cord was clamped and cut by the baby's father . The placenta delivered spontaneously and appears to by intact with a three vessel cord. Pitocin 10 units IM was administered after delivery of the placenta as IV was not running. The IV began running spontaneously and she received 30 units IV as well. Her perineum was inspected and a first degree laceration was repaired. The baby did breastfeed. After delivery, Mother and baby and father of the baby were stable and bonding well in the delivery room and there were no complications. Providers Nurse Environmental Communications Specialist: Amira Del Cid Paste Mixer: Gianluca Platt Nurse: Sarmad Leiva Nurse: Page Atwood Labor/Delivery Information Number of Babies in Womb: 1 Steroids Given: None Reason Steroids Not Administered: N/A Group Beta Strep: Negative Antibiotics Administered: No Shoulder Dystocia: No Stages of Labor Onset of Labor Date: 10/25/22 Onset of Labor Time: 14:00 Complete Dilatation Date: 10/26/22 Complete Dilatation Time: 07:00 Labor - Stage 1 Duration: 17 hours and 0 minutes ROM Baby A: 10/26/22 ROM Baby A: 06:43 ROM Total Time- Baby A: [id number] Infant Delivery Date-Baby A: 10/26/22 Delivery Time-Baby A: 07:37 Labor Stage 2 Duration: 37 minutes Placenta Delivery Date-Baby A: 10/26/22 Placenta Delivery Time-Baby A: 07:46 Labor-Stage 3 Duration: 9 minutes Total Length of Labor-Baby A: 17 hours and 37 minutes Placenta Status: Delivered Baby A Gender: Female Gestational Status: Term (39-41.6 wks) Gestational Age in Weeks/Days: 39 Weeks and 4 Days Length-Baby A: 20 in Score-1 Minute Interval(Baby A) Heart Rate-1 minute: 100 BPM or Greater Respiratory Effort- 1 minute: Slow Respiration/Weak Cry Muscle Tone-1 minute: Active Movement Reflex Response-1 minute: Prompt Response Color-1 minute: Bluish Hands or Feet Total Score-1 minute: 8 Score-5 Minute Interval(Baby A) Heart Rate- 5 minute: 100 BPM or Greater Respiratory Effort-5 minute: Spontaneous/Strong Cry Muscle Tone-5 minute: Active Movement Reflex Response-5 minute: Prompt Response Color-5 minute: Bluish Hands or Feet Total Score- 5 minute: 9 Interventions Repair of Laceration Type: Perineal, Laceration Extension: First Degree. Sponge Count Correct: No Sponges Placed in Vagina, Sharp Count Correct: Yes.
[2022-10-26] MEDS: Oxytocin 10 UNITS/ML VIAL IM (08:43)
--- NOTE | 2022-10-26 10:14 | W.ANESPOSTOP ---
Postoperative Evaluation Date, Time and Location Date Performed: 10/26/22 Time Performed: 09:40 Patient Location: Obstetrics Vital Signs Most Recent Imported Vital Signs: Most Recent Vital Signs Temp Pulse Resp BP Pulse Ox 36.8 C 86 18 120/66 98 10/26/22 00:51 10/26/22 09:34 10/26/22 00:51 10/26/22 09:34 10/26/22 04:03 Assessment Mental Status: Awake (Alert & Oriented to Patient Baseline) Airway and Respiratory Function: Patent airway with normal (patient baseline) respiratory exam Cardiovascular Function: Hemodynamically Stable Hydration Status: Adequately Hydrated Nausea & Vomiting: No Nausea or Vomiting Pain: Pt. Denies Any Pain Peripheral Nerve Block: Other (Labor Epidural, removed as noted. Tolerated well.) Epidural/Spinal Cath. Removal Date Performed: 10/26/22 Procedure Time: 09:40 Catheter Removal Type: Epidural Catheter Procedure Location: Obstetrics Patient Position: Sitting Catheter Removal Procedure: Dressing Removed, Catheter Removed without Resistance, Catheter Tip Intact and Dressing Applied (bandaid) Paresthesia: None Procedure Tolerated: No Complications and Patient tolerated well Procedure Outcome: Successful Performed By: Terrance Beckwith
[2022-10-26] MEDS: Acetaminophen 325 MG TAB 650 MG PO ×3 (12:20→20:55)
[2022-10-26] MEDS: Ibuprofen 600 MG TAB PO ×2 (12:20→20:56)
[2022-10-26] MEDS: Docusate Sodium 100 MG CAP PO (16:26)
[2022-10-27] MEDS: Ibuprofen 600 MG TAB PO (06:59)
[2022-10-27] MEDS: Acetaminophen 325 MG TAB 650 MG PO (07:00)
[2022-10-27 07:50] VITALS: BP 130/84; PULSE 81; RESP 12; TEMP 36.8
--- NOTE | 2022-10-27 08:50 | DSE_ITS ---
Date of service: 10/27/22 Time of Service: 08:50 DS: Diagnosis Discharge Diagnosis (1) Spontaneous onset of labor: Status: Acute Asessment and Plan: 1. Normal PP course 2. Breast feeding well established 3. Planning Progesterone only pills for contraception at 2-4 weeks PP 4. RTO in 2 and 4 weeks or prn. Discharge Plan Disposition Patient Disposition: Home Condition: Good Discharge Details Reason For Visit: Term Labor Admit Date/Time: 10/26/22 00:30 Admit Provider: Amria Del Cid Attending Provider: Amira Del Cid Primary Care Provider: Unknown,Unknown Hospital Course Hospital Course: Normal labor with epidural for pain management and NVD. Normal PP course X 24 hours. Breast feeding well established. Will RTO in 2 and 6 weeks PP. Home Meds and New Rx's Prescriptions: New ibuprofen 600 mg Tablet 600 mg PO Q6H PRN PRNQty: 90 0RF Continued prenat.vits,lea,lqz-zzky-zfjds Tablet 1 tab PO DAILY omeprazole magnesium 20 mg tablet,delayed release (DR/EC) 20 mg PO DAILY Qty: 90 2RF Discharge Instructions Stand Alone Forms: Instructions, Post Vaginal Deliver Activity:: Activity as Tolerated Equipment/Supplies:: No Equipment Needed Diet:: As Tolerated Discharge Orders Discharge Orders: Discharge Order (Routine); Ordered 10/27/22 Ordered By: Amira De Luna OB:DS Summary Summary Vaginal Delivery Method: Spontaneaous Episiotomy Description: None Laceration Description: Perineal Laceration Extension: First Degree Contraception Discussed Contraception Discussed: Yes Contraceptive Plan: Control Pill/Patch (progesterone only pill 2-4 week PP), [place] Infant Gender-Baby A: Female Status at Discharge Functional status at discharge: independent ambulation Overall status at discharge: patient is back to baseline Mental Status: mental status grossly normal Speech and Movement: speech and movement normal Mood: congruent mood Affect: normal affect Time Spent with Patient providing and/or coordinating discharge services: Less than 30 minutes Exam Physical Exam Vital signs: Temp Pulse Resp BP Pulse Ox 98.1 F 81 16 129/83 95 10/26/22 20:58 10/26/22 20:58 10/26/22 20:58 10/26/22 20:58 10/26/22 16:20 Constitutional Constitutional: no acute distress, average body habitus and cooperative HEENT Exam HEENT Exam: Normal Neck Exam Neck Exam: Normal (normal visual inspection) Respiratory Exam Respiratory Exam: Normal Cardiovascular Exam Cardiovascular Exam: Normal Abdominal Exam Abdomen: Other (normal exam) Fundal Exam Fundus: Below Umbilicus and Firm Comment: small lochia noted. KH Rectal Exam Rectal Exam: Not Done Exam Perineum: Intact and Normal Extremities Exam Extremity Exam: Normal (denies calf tenderness) and Full ROM Back/Spine/Pelvis Exam Back Exam: Normal Skin Exam Skin Exam: Normal Neurological Exam Neurological Exam: Normal Psychiatric Exam Psychiatric Exam: Normal PFSH All Active Problems Spontaneous onset of labor (Acute) Right hip pain (Acute) (Acute) Anxiety (Chronic) Medical History Back pain COVID-19 affecting in first trimester Former tobacco use History of ectopic treated with medication Mild anemia Family History Father Well adult Mother Well adult Paternal Grandmother Breast cancer Maternal Grandfather Diabetes Social History Smoking/Tobacco Use Status: Former Tobacco Use Smoking risk assessment performed?: Yes Alcohol Intake: former Drug use: Never Current gender identity: female Do you feel safe at home: Yes Do you feel safe in your relationship?: Yes History History 3 Para 1 Hx # Term Pregnancies 1 Multiple births 0 Hx # Pregnancies 0 Ectopic pregnancies 1 AB induced 0 Hx Number of Living Children 1 AB spontaneous 0 Past Pregnancies Del. Date GA/Weeks # Preg Succ Route Wgt Sex Labor Lgth Anesth esia Location Prov [facility] 07/30/16 No In [place] 12/23/20 39 No vaginal 7 lb 12.51 oz Female local [facility] J[facility]/MD [facility] Delivery Date: 07/30/16 Last Updated by: Laney Elizalde ectopic preg, Rx'ed methyltrexate Delivery Date: 12/23/20 Last Updated by: Amira Del Cid CNM Long prodromal phase. Received therapeutic rest. Retained placenta, manually removed due broken cord Angelica Chrisle. Used nitrous oxide. DS: Data Vitals/I&O Vitals and I&O: Vital Signs Temperature 98.1 F 10/26/22 20:58 Temperature Source Oral 10/26/22 20:58 Pulse 81 10/26/22 20:58 Pulse Rhythm Regular 10/26/22 21:15 Respiratory Rate 16 10/26/22 20:58 Blood Pressure 129/83 10/26/22 20:58 Blood Pressure Mean 98 10/26/22 20:58 Pulse Oximetry 95 10/26/22 16:20 Pain Level 8 10/27/22 07:00 Intake & Output 10/26/22 10/26/22 10/27/22 11:59 23:59 11:59 Output Total 300 / 300 Balance -300 / -300 Weight 193 lb Output: Urine 300 / 300 Other: Urine Color Yellow Urine Appearance Clear Urine Odor None Voiding Methods Toilet
== END 2022-10-27 11:50 | disposition home or self-care (01) | DRG 807 ==
PROVIDERS: Admitting Provider Advanced Practice Midwife; Visit Provider Advanced Practice Midwife
DX: O99.344 Other mental disorders complicating childbirth (principal); Z37.0 Single live birth; Z3A.39 39 weeks gestation of pregnancy; O69.1XX0 Labor and delivery complicated by cord around neck, with compression, not applicable or unspecified; O70.0 First degree perineal laceration during delivery
CPT/HCPCS: 36415; 85027; 86850; 86900; 86901; J2590

== ENCOUNTER 2023-03-27 15:22 | Outpatient (REF) | payer MEDICAID, SELFPAY ==
[2023-03-29 16:36] LABS: Chlamydia Result Negative (Negative); GC Result Negative (Negative)
== END 2023-03-27 15:23 | disposition home or self-care (01) ==
LOC: LBN 15:22
PROVIDERS: PCP Advanced Practice Midwife; Visit Provider Advanced Practice Midwife
DX: Z11.3 Encounter for screening for infections with a predominantly sexual mode of transmission (principal)
CPT/HCPCS: 87491; 87591

== ENCOUNTER 2024-07-29 00:39 | Outpatient (CLI) | payer BC, SELFPAY ==
--- NOTE | 2024-07-29 06:45 | DI.MAMMO_ITS ---
Exam(s) US BREAST RT COMPLETE MG MAMMO DIAGNOSTIC BI EXAM: MG MAMMO DIAGNOSTIC BI CLINICAL HISTORY: lump 6:00, 5cm from nipple, R breast,N63.15. COMPARISON: US US BREAST RT COMPLETE from 07/29/2024 TECHNIQUE: Craniocaudal and mediolateral oblique Full Field Digital Mammography views of both breast s with Computer Aided Diagnosis followed by Tomosynthesis and right breast ultrasound. Spot magnific ation views of the right breast were also performed. FINDINGS: Mammography/Tomosynthesis: Left mammogram: Masses: None seen. Architectural Distortion: None seen. Microcalcifications: No suspicious pleomorphic-type are seen. Skin Thickening/Nipple Retraction: None. Right mammogram: Masses: There is an irregular 15 millimeter mass in the posterior inferior right breast which corresp onds to the palpable abnormality. There are associated pleomorphic microcalcifications. There is an ovoid lymph node in the upper outer quadrant without definite abnormal features. Skin Thickening/Nipple Retraction: None. No visible axillary lymph nodes. Right breast US: Echotexture: Normal appearance of the glandular tissue. Cyst: None. Solid lesions: Ill-defined mildly echogenic mass located the 5 o'clock position 7 cm from the nipple. It measures 1.4 x 0.9 x 1.2 cm. There is a lymph node in the 9 o'clock position 4 cm from the nipple measuring 12 millimeters. It currie s a normal sonographic appearance. Ductal dilation: None. Axilla: No abnormal lymph nodes identified. IMPRESSION: 1. Suspicious mass in the inferior right breast. Biopsy is recommended. This could be performed und er ultrasound guidance. A lymph node is noted in the lateral portion of the breast which is not show malignant features. 2. Findings were discussed with the patient and Snow Tejada NP. BI-RADS Category 5 - Highly Suggestive of Malignancy: Biopsy recommended Breast Density - Category B - Scattered areas of fibroglandular density Breast density category C or D implies that the patient has dense breast tissue. Dense breast tissue is very common and is not abnormal but dense breast tissue can make it harder to find cancer on a ma mmogram. Also, dense breast tissue may increase their breast cancer risk. This information about the result of the mammogram report was provided to the patient to raise their awareness. Use this report when you speak with the patient about their risks for breast cancer, which includes their family hist ory. At that time, you may recommend for more screening tests (Ultrasound or MRI) as they might be us eful based on their risk. A negative radiographic report should not delay biopsy if a dominant or clinically suspicious mass is present. Up to ten percent of cancers are not identified on mammography. A negative report may reinforce clinical impression. Adenosis and dense breasts may obscure an underlying neoplasm. False positive reports average 6 to 10%. Patient will receive a letter notifying them of these results.
== END 2024-07-29 00:59 ==
LOC: DI 00:39
PROVIDERS: PCP Advanced Practice Midwife; Visit Provider Nurse Practitioner Women's Health
DX: N63.15 Unspecified lump in the right breast, overlapping quadrants (principal); Z12.31 Encounter for screening mammogram for malignant neoplasm of breast
CPT/HCPCS: 76642; 77062; 77066; G0279

== ENCOUNTER 2025-01-22 00:02 | Outpatient (RCR) | payer MEDICAID, SELFPAY ==
[2025-01-08 09:27] LABS: Abs Immature Grans 0.19 10^3/uL (0.0-0.06); HCT 33.9 % (36.0-46.0); HGB 11.3 g/dL (11.2-15.7); Immature Grans % 2.2 %; MCH 30.3 pg (27.0-33.0); MCHC 33.3 % (32.0-36.0); MCV 91 fL (80-95); MPV 10.2 fL (8.0-11.0); Platelet Count 206 10^3/uL (130-400); RBC 3.73 10^6/uL (3.93-5.22); RDW 15.8 % (11.7-14.6); RDW-SD 51.8 fL; WBC 8.54 10^3/uL (4.4-10.8)
[2025-01-08 09:49] LABS: ALT 47 U/L (14-59); AST 23 U/L (15-37); Albumin 3.8 g/dL (3.4-5.0); Alkaline Phosphatase 105 U/L (46-116); Anion Gap 9.1 mmol/L (3-11); BUN 11 mg/dL (7-18); Bilirubin, Total 0.3 mg/dL (0.2-1.0); CO2 27.9 mmol/L (21.0-32.0); Calcium 8.2 mg/dL (8.5-10.1); Chloride 102 mmol/L (98-107); Glucose 93 mg/dL (74-106); HCG Quant, Pregnancy 1 mIU/mL (1-3); Potassium 3.4 mmol/L (3.5-5.1); Sodium 139 mmol/L (136-145); Total Protein 7.1 g/dL (6.4-8.2)
[2025-01-08] MEDS: Normal Saline Flush 10 ML SYR IVP (09:49)
[2025-01-11 13:30] LABS: Cancer Ag 15-3 30 U/mL (<30)
[2025-01-22 09:06] LABS: Abs Immature Grans 0.02 10^3/uL (0.0-0.06); HCT 33.3 % (36.0-46.0); HGB 11.1 g/dL (11.2-15.7); Immature Grans % 0.5 %; MCH 30.6 pg (27.0-33.0); MCHC 33.3 % (32.0-36.0); MCV 92 fL (80-95); MPV 9.6 fL (8.0-11.0); Platelet Count 265 10^3/uL (130-400); RBC 3.63 10^6/uL (3.93-5.22); RDW 15.3 % (11.7-14.6); RDW-SD 51.7 fL; WBC 3.66 10^3/uL (4.4-10.8)
[2025-01-22 09:35] LABS: ALT 79 U/L (14-59); AST 39 U/L (15-37); Albumin 4.0 g/dL (3.4-5.0); Alkaline Phosphatase 70 U/L (46-116); Anion Gap 9.6 mmol/L (3-11); BUN 12 mg/dL (7-18); Bilirubin, Total 0.4 mg/dL (0.2-1.0); CO2 25.4 mmol/L (21.0-32.0); Calcium 8.4 mg/dL (8.5-10.1); Chloride 103 mmol/L (98-107); Glucose 87 mg/dL (74-106); Potassium 3.7 mmol/L (3.5-5.1); Sodium 138 mmol/L (136-145); Total Protein 7.3 g/dL (6.4-8.2)
[2025-01-22] MEDS: Normal Saline Flush 10 ML SYR IVP (10:13)
[2025-01-22 10:25] LABS: HCG Quant, Pregnancy 2 mIU/mL (1-3)
== END 2025-01-29 23:59 | disposition home or self-care (01) ==
LOC: INF 00:02
PROVIDERS: PCP Advanced Practice Midwife; Visit Provider Nurse Practitioner Family
DX: C50.311 Malignant neoplasm of lower-inner quadrant of right female breast (principal); Z17.0 Estrogen receptor positive status [ER+]; Z45.2 Encounter for adjustment and management of vascular access device
CPT/HCPCS: 36591; 80053; 86300; 84702; 85025

== ENCOUNTER 2025-02-19 00:11 | Outpatient (RCR) | payer MEDICAID, SELFPAY ==
[2025-02-05] MEDS: Normal Saline Flush 10 ML SYR IVP (10:01)
[2025-02-05 10:17] LABS: Abs Immature Grans 0.02 10^3/uL (0.0-0.06); HCT 35.3 % (36.0-46.0); HGB 11.6 g/dL (11.2-15.7); Immature Grans % 0.5 %; MCH 30.6 pg (27.0-33.0); MCHC 32.9 % (32.0-36.0); MCV 93 fL (80-95); MPV 9.9 fL (8.0-11.0); Platelet Count 223 10^3/uL (130-400); RBC 3.79 10^6/uL (3.93-5.22); RDW 14.6 % (11.7-14.6); RDW-SD 50.3 fL; WBC 4.32 10^3/uL (4.4-10.8)
[2025-02-05 10:40] LABS: ALT 41 U/L (14-59); AST 20 U/L (15-37); Albumin 3.9 g/dL (3.4-5.0); Alkaline Phosphatase 61 U/L (46-116); Anion Gap 8.1 mmol/L (3-11); BUN 12 mg/dL (7-18); Bilirubin, Total 0.5 mg/dL (0.2-1.0); CO2 28.9 mmol/L (21.0-32.0); Calcium 8.5 mg/dL (8.5-10.1); Chloride 103 mmol/L (98-107); Estimated GFR 121.47 (mL/min/1.73m2); Glucose 115 mg/dL (74-106); HCG Quant, Pregnancy 2 mIU/mL (1-3); Potassium 3.7 mmol/L (3.5-5.1); Sodium 140 mmol/L (136-145); Total Protein 7.3 g/dL (6.4-8.2)
[2025-02-09 12:31] LABS: Cancer Ag 15-3 20 U/mL (<30)
[2025-02-19] MEDS: Normal Saline Flush 10 ML SYR IVP (08:39)
[2025-02-19 08:45] LABS: Abs Immature Grans 0.01 10^3/uL (0.0-0.06); HCT 35.9 % (36.0-46.0); HGB 11.9 g/dL (11.2-15.7); Immature Grans % 0.3 %; MCH 31.2 pg (27.0-33.0); MCHC 33.1 % (32.0-36.0); MCV 94 fL (80-95); MPV 10.0 fL (8.0-11.0); Platelet Count 276 10^3/uL (130-400); RBC 3.82 10^6/uL (3.93-5.22); RDW 13.8 % (11.7-14.6); RDW-SD 47.0 fL; WBC 3.37 10^3/uL (4.4-10.8)
[2025-02-19 09:02] LABS: ALT 26 U/L (10-49); AST 24 U/L (<34); Albumin 4.5 g/dL (3.4-5.0); Alkaline Phosphatase 60 U/L (46-116); Anion Gap 5.7 mmol/L (3-11); BUN 9 mg/dL (9-23); Bilirubin, Total 0.40 mg/dL (0.2-1.2); CO2 26.3 mmol/L (20.0-31.0); Calcium 9.6 mg/dL (8.3-10.6); Chloride 109 mmol/L (98-107); Glucose 118 mg/dL (74-106); Potassium 3.7 mmol/L (3.5-5.1); Sodium 141 mmol/L (136-145); Total Protein 7.2 g/dL (5.7-8.2)
[2025-02-19 09:14] LABS: HCG Quant, Pregnancy < 3 mIU/mL (1.5-4.2)
[2025-02-22 20:57] LABS: Cancer Ag 15-3 17 U/mL (<30)
== END 2025-02-28 23:59 | disposition home or self-care (01) ==
LOC: INF 00:11
PROVIDERS: PCP Advanced Practice Midwife; Visit Provider Nurse Practitioner Family
DX: C50.311 Malignant neoplasm of lower-inner quadrant of right female breast (principal); Z17.0 Estrogen receptor positive status [ER+]
CPT/HCPCS: 36591; 80053; 86300; 84702; 85025